=== PATIENT | female | born 1970 | race Caucasian/White ===

== ENCOUNTER 2017-01-17 00:52 | Emergency (ER) | payer OTHER ==
--- NOTE | 2017-01-17 03:43 | ED CLINICAL REPORT ---
Clinical Report - Physicians/Mid Levels [facility] [address] [place] [address] 01/17/2017 0:53 Patient: ALETA ARELLANO Time Seen: 00:59; initial patient contact. Arrived- By private vehicle. Historian- patient. HISTORY OF PRESENT ILLNESS Chief Complaint: CHEST PAIN. At its maximum, severity described as moderate. When seen in the E.D., severity described as moderate. Modifying factors. Not worsened by anything. Not relieved by anything. This started yesterday. Onset during rest. It is described as aching and "pain" and it is described as located in the RUQ of the abdomen and radiating to the upper back. The patient has had nausea. No vomiting, difficulty breathing or diaphoresis. Similar symptoms previously: Several times. Recent medical care: Not recently seen/assessed. REVIEW OF SYSTEMS No fever, chills, cough, pedal edema or calf pain. No diarrhea or vomiting. She has had abdominal pain and nausea. All systems otherwise negative, except as recorded above. PAST HISTORY Problems: Obesity. Hypertension. Depression. Anxiety Reaction. Surgeries: Appendectomy. . Tonsillectomy. SOCIAL HISTORY Never smoker. No alcohol use or drug use. ADDITIONAL NOTES The nursing notes have been reviewed. PHYSICAL EXAM Vital Signs: 01/17/2017 00:55 BP: 140/84. HR: 90. RR: 20. O2 saturation: 98%. Temp: 98.3 F. Pain level now: 04/18. Have been reviewed. Hypertensive. Heart rate normal. Respiratory rate normal. Temperature normal. Oxygen saturation normal. Appearance: Alert. Oriented X3. No acute distress. Eyes: Eyes normal inspection. ENT: Pharynx normal. CVS: Normal heart rate and rhythm. Heart sounds normal. Respiratory: No respiratory distress. Breath sounds normal. Chest nontender. Abdomen: Soft. Mild tenderness in the right upper quadrant. Positive Ervin's sign. No guarding. Bowel sounds normal. No organomegaly. No mass. Back: Normal external inspection. No CVA tenderness. Skin: Normal skin color. Extremities: No calf tenderness. No lower extremity edema. Neuro: Oriented X 3. LABS, X-RAYS, AND EKG EKG: EKG time: (101). No acute process. No acute ischemia. Normal EKG. Normal sinus rhythm. Rate: 90. Normal P waves. Normal SHELBI. Normal QRS complex. Normal axis. Normal ST and T waves, QT and QTc. Prior EKG unavailable. The study has been interpreted contemporaneously by me. The study has been independently viewed by me. The EKG appears to be a good tracing. Interpretation time: 101. Laboratory Tests: UA-Culture if indicated: (JOLENE: 01/17/2017 02:40) ( Mscvd 01/17/2017 03:01) Final results Test Result Flag Units (Reference) URINE COLOR YELLOW URINE APPEARANCE CLEAR URINE GLUCOSE NEGATIVE (NEGATIVE) URINE BILIRUBIN NEGATIVE (NEGATIVE) URINE KETONE NEGATIVE (NEGATIVE) URINE SPECIFIC GRAVITY 1.015 (1.010-1.030) URINE PH 6.0 (5.0-8.0) URINE PROTEIN NEGATIVE (NEGATIVE) URINE UROBILINOGEN 0.2 EU/dL (0.2-1.0) URINE NITRITE NEGATIVE (NEGATIVE) URINE BLOOD NEGATIVE (NEGATIVE) URINE LEUK ESTERASE NEGATIVE (NEGATIVE) URINE RBC RARE rbc/hpf (0-1) URINE WBC 0-1 wbc/hpf (0-1) URINE EPITHELIAL CELLS 0-1 EPI/hpf (0-5) URINE BACTERIA NONE SEEN (NONE SEEN) URINE COMMENT CULT NOT INDICATED URINE CULTURES ARE SET-UP BASED ON THE FOLLOWING CRITERIA:POSITIVE NITRITEPOSITIVE LEUKOCYTE ESTERASEGREATER THAN 10 WHITE BLOOD CELLSMODERATE (2+) OR GREATER BACTERIA CBC w Diff: (JOLENE: 01/17/2017 01:05) ( Mscvd 01/17/2017 02:08) Final results Test Result Flag Units (Reference) WHITE BLOOD COUNT 8.7 K/uL (4.5-11.5) RED BLOOD COUNT 3.90 L M/uL (4.00-5.20) HEMOGLOBIN 12.4 gm/dL (12.0-16.0) HEMATOCRIT 36.7 % (36.0-46.0) MEAN CELL VOLUME 94 fL (80-100) MEAN CORPUSCULAR HGB 32 pg (26-34) MEAN CORPUSCULAR HGB CONC 34 g/dL (31-37) RED CELL DISTRIBUTION WIDTH 12.9 % (11.6-14.8) PLATELET COUNT 200 K/uL (150-400) NEUTROPHIL % 59.2 % (50-75) LYMPH % 30.0 % (25-40) MONO % 8.3 % (3-14) EOSINOPHIL % 2.3 % (0-4) BASOPHIL % 0.2 % (0-2) Urine Drug Screen: (JOLENE: 01/17/2017 02:40) ( MsgRcvd 01/17/2017 03:12) Final results Test Result Flag Units (Reference) AMPHETAMINE/METHAMPHETAMINE NEGATIVE (NEGATIVE) BARBITURATE NEGATIVE (NEGATIVE) BENZODIAZEPINE NEGATIVE (NEGATIVE) CANNABINOID NEGATIVE (NEGATIVE) COCAINE NEGATIVE (NEGATIVE) ECSTASY NEGATIVE (NEGATIVE) METHADONE NEGATIVE (NEGATIVE) OPIATE NEGATIVE (NEGATIVE) The urine drug screen is a qualitative screening test fordrug overdose and abuse. All screen results should beconsidered as presumptive.Drugs screened for are as follows:BenzodiazepinesCocaineAmphetamines/MetamphetaminesTHC (Tetrahydrocannabinol)OpiatesBarbituratesEcstasyMethadonePositive results are unconfirmed. For confirmation, notifythe lab for the specimen to be sent to the reference lab.All confirmations must be performed by a differentmethodology.The ingestion of natural herbal and plant productscontaining Ephedra/Ephedra metabolites can produce in urineone or more substances capable of cross reacting withamphetamine/methamphetamine immunoassays. These testsprovide a preliminary result only. A more specificalternative chemical method must be used to obtain aconfirmed analytical result. CMP: (JOLENE: 01/17/2017 01:05) ( NcgRcvd 01/17/2017 02:26) Final results Test Result Flag Units (Reference) GLUCOSE 166 H mg/dL (70-110) BUN 17 mg/dL (7-18) CREATININE 0.8 mg/dL (0.6-1.3) Estimated GFR >60 mL/min Estimated GFR- >60 mL/min Note: Persistent reduction over 3 months in eGFR<60 mL/min/1.73 m2 defines CKD. Patients with eGFR values>=60 mL/min/1.73 m2 may also have CKD if evidence ofpersistent proteinuria. Additional information may be foundat www.kidney.org. SODIUM 138 mmol/L (136-145) POTASSIUM 3.8 mmol/L (3.5-5.1) CHLORIDE 104 mmol/L (98-107) CARBON DIOXIDE 25 mmol/L (21-32) CALCIUM 9.0 mg/dL (8.5-10.1) TOTAL PROTEIN 6.8 g/dL (6.4-8.2) ALBUMIN 3.4 g/dL (3.3-5.0) BILIRUBIN, TOTAL 0.5 mg/dL (0.0-1.0) ALKALINE PHOSPHATASE 78 U/L (46-116) AST (SGOT) 35 U/L (15-37) ALT (SGPT) 53 U/L (12-78) LIPASE 138 U/L (73-393) AMYLASE 40 U/L (25-115) . PROGRESS AND PROCEDURES Disposition: Discharged home in good and improved condition. Condition: good. CLINICAL IMPRESSION Acute right upper quadrant abdominal pain of undetermined cause. INSTRUCTIONS Prescription Medications: Hydrocodone/APAP 5mg / 325mg: take 1 orally every 6 hours as needed for pain. Dispense fifteen (15). No refill. Zofran (orally disintegrating tablets) 4 mg: take 1 orally every 6 hours as needed for nausea and vomiting. Dispense ten (10). No refill. Substitution is permissible. Follow-up: Screening today revealed the patient's blood pressure to be in the pre-hypertensive range. The patient should follow up with a primary care provider for blood pressure management. Follow-up with: Mario Gill MD, General Surgeon, , [facility], [address] [place] [address] Follow up in about one day. Call for an appointment. (Electronically signed by Meir Corona Dr. 01/17/2017 3:56)
--- NOTE | 2017-01-17 03:43 | ED ORDER SUMMARY ---
..... Patient: ALETA ARELLANO OrderSheet VisitID: [id number] [place] [address] 46y, F Registration Date/Time: 01/17/2017 ORDER SHEET Weight: 136.0 kg (stated) Allergies: No Known Drug Allergy GENERAL ORDERS: CBC w Diff Urgent (01:40 01/17/2017 Esha De Jesus) (1:44 TLewis R.N.) CMP Urgent (:40 01/17/2017 Esha De Jesus) (Ack 1:52 AMcQuoid ER Tech1) (2:29 HSoule) Amylase Urgent (:40 01/17/2017 Esha De Jesus) (Ack 1:52 AMcQuoid ER Tech1) (2:29 HSoule) Lipase Urgent (:01/17/2017 Esha De Jesus) (Ack 1:52 AMcQuoid ER Tech1) (2:29 HSoule) UA-Culture if indicated Urgent (01:59 01/17/2017 Esha De Jesus) (Ack 2:04 SRedmond) (3:06 HSoule) Urine Drug Screen Urgent (:59 01/17/2017 Esha De Jesus) (Ack 2:04 SRedmond) (3:12 HSoule) MEDICATION ORDERS: IV FLUIDS: IV NS : initial bolus none -, then 1000 mL/hr for X1 (NOW) (01:39 01/17/2017 Esha De Jesus) (2:11 HSoule) Toradol IV 30 mg (NOW) (01:40 01/17/2017 Esha De Jesus) (Cancelled: Physician Order1:57 Esha De Jesus) Demerol IV 50 mg (HIGH ALERT MEDICATION, NOW) (01:58 01/17/2017 Esha De Jesus) (2:12 HSoule) Demerol IV 50 mg (HIGH ALERT MEDICATION, NOW) (03:36 01/17/2017 Esha De Jesus) (Ack 3:37 HSoule) (3:43 HSoule) ORDER SHEET NOTES: [Electronically signed by Meir Corona Dr. (03:56 01/17/2017)] [Electronically signed by Nerissa Camp R.N. (:43 01/20/2017)] [Electronically locked/signed by Nerissa Camp R.N. (43 01/20/2017)]
--- NOTE | 2017-01-17 03:43 | ED ORDER SUMMARY ---
..... Patient: ALETA ARELLANO OrderSheet [facility] VisitID: [id number] [place] [address] 46y, F Registration Date/Time: 01/17/2017 ORDER SHEET Weight: 136.0 kg (stated) Allergies: No Known Drug Allergy GENERAL ORDERS: CBC w Diff Urgent (01:40 01/17/2017 Esha De Jesus) (1:44 TLewis R.N.) CMP Urgent (:40 01/17/2017 Esha De Jesus) (Ack 1:52 AMcQuoid ER Tech1) (2:29 HSoule) Amylase Urgent (:40 01/17/2017 Esha De Jesus) (Ack 1:52 AMcQuoid ER Tech1) (2:29 HSoule) Lipase Urgent (:01/17/2017 Esha De Jesus) (Ack 1:52 AMcQuoid ER Tech1) (2:29 HSoule) UA-Culture if indicated Urgent (01:59 01/17/2017 Esha De Jesus) (Ack 2:04 SRedmond) (3:06 HSoule) Urine Drug Screen Urgent (:59 01/17/2017 Esha De Jesus) (Ack 2:04 SRedmond) (3:12 HSoule) MEDICATION ORDERS: IV FLUIDS: IV NS : initial bolus none -, then 1000 mL/hr for X1 (NOW) (01:39 01/17/2017 Esha De Jesus) (2:11 HSoule) Toradol IV 30 mg (NOW) (01:40 01/17/2017 Esha De Jesus) (Cancelled: Physician Order1:57 Esha De Jesus) Demerol IV 50 mg (HIGH ALERT MEDICATION, NOW) (01:58 01/17/2017 Esha De Jesus) (2:12 HSoule) Demerol IV 50 mg (HIGH ALERT MEDICATION, NOW) (03:36 01/17/2017 Esha De Jesus) (Ack 3:37 HSoule) (3:43 HSoule) ORDER SHEET NOTES: [Electronically signed by Meir Corona Dr. (03:56 01/17/2017)] [Electronically signed by Nerissa Camp R.N. (:43 01/20/2017)] [Electronically locked/signed by Nerissa Camp R.N. (43 01/20/2017)]
--- NOTE | 2017-01-17 03:43 | ED NURSING NOTES ---
Clinical Report - Nurses [facility] [address] [place] [address] 01/17/2017 0:53 [facility]: [id number] Triage time 00:55 Jan 17 2017. Acuity: LEVEL 3. Chief Complaint: CHEST PAIN. SEPSIS SCREEN: Sepsis Screen: negative. Negative (no infection suspected/documented). KENISHA COMA SCORE: Kenisha Coma Scale: 15- eyes open spontaneously (4); best verbal response- oriented x 4 (5); best motor response- obeys commands (6). --01:02 Trupti Jansen 00:55 01/17/17. BP: 140/84. HR: 90. RR: 20. O2 saturation: 98% on room air. Temp: 98.3 F (oral). Pain level now: 04/18. --01:02 Trupti Jansen. Weight: 136 kg stated. Height/Length: 68 inches Per Patient. BMI: 45.6. --01:00 Trupti Jansen. Medications Omeprazole Oral. --00:59 Trupti Jansen. Allergies No Known Drug Allergy. --00:59 Trupti Jansen. History Arrived by private vehicle. Historian: patient. Accompanied by friend. Primary physician (none at this time- [facility]). ( Patient reports pain in her right chest area under her ribs. She states it moves into her back. She reports a history of GERD but states the pain is increasing. She reports the pain as sharp and aching. She states this started about ten tonight. She reports she also feels very tired.). She has had difficulty breathing. Treatment [employer]: None. PAST MEDICAL HX: Diabetes mellitus. Hypertension. Immunizations: up-to-date. Last normal menstrual period- 10 days ago. SOCIAL HX: Never smoker. Occasional alcohol use. No drug use. No infectious disease exposure. ABUSE ASSESSMENT: No report of abuse. SELF HARM ASSESSMENT: A self harm assessment was performed. The patient answered "no" to the question "Have you recently felt down, depressed, or hopeless?", "Have you noticed less interest or pleasure in doing things?", "Do you have thoughts of harming or killing yourself?", "Are you here because you tried to hurt yourself?", "Have you ever tried to hurt yourself before today?", "Have you recently had thoughts about harming or killing others?" and "Do you have any dangerous items in your possession?". FALL RISK ASSESSMENT: Fall risk assessment completed. No fall risk identified. NUTRITIONAL RISK ASSESSMENT: The nutritional risk assessment revealed no deficiencies. FUNCTIONAL ASSESSMENT: Functional assessment: no impairments noted. LEARNING NEEDS ASSESSMENT: The learning needs assessment revealed no barriers. SKIN INTEGRITY ASSESSMENT: Skin integrity risk assessment completed. No skin integrity risk identified. --01:02 Trupti Jansen. PROBLEMS: Back Pain. Obesity. Depression. Anxiety Reaction. --00:59 Trupti Jansen The following entry was modified by Trupti Jansen, 01:02 <<STRICKEN ENTRY-- Hypertension. --04:06 Trupti Jansen --END STRIKE>>. ADDITIONAL SURGERIES: Appendectomy. . Tonsillectomy. --:59 Trupti Jansen. Interventions ID band on patient. To treatment room. --01: Trupti Jansen. PHYSICAL ASSESSMENT Ambulatory to room. Patient gowned. GENERAL / NEURO / PSYCH: Alert. Oriented X 4. Appears in no acute distress. HEENT: Mucous membranes are pink. RESPIRATORY: Respirations not labored. CVS: Normal sinus rhythm noted. Heart sounds within normal limits. GI / : Abdomen soft. Abdominal tenderness in the right upper quadrant. SKIN: Skin is warm and dry. --:04 Trupti Jansen. NURSING PROGRESS NOTES The initial plan of care for this patient has been created This plan of care was discussed with the patient. monitor and storage bin tender, pulse oximeter and NIBP monitor placed on patient. Patient gowned. Reassurance given to the patient. Two patient identifiers checked. Call light placed in reach. Side rails up x 1. Bed placed in lowest position. Brakes of bed on. Patient ready for evaluation- chart flagged and ED physician notified. --01:04 Trupti Jansen EKG time: (Jan 17 2017). EKG was ordered, performed by a tech and shown to the ED physician. --01:28 InderjitKiran jimeneznah 01:20 01/17/2017 Site #1 started via IV in the left forearm with an 20g angiocath, with aseptic technique and good blood return; one attempt. Blood drawn: rainbow set. Labeled in the presence of the patient and sent to the lab. Saline lock flushed with 10 mL saline. --02:11 InderjitKiran jimeneznah 01:56 01/17/2017 Started bag #1 1000 mL IV Fluids IV NS (Saline); at 1000 mL/hr over 1 hour(s) via site #1 via IV pump. Allergies verified and confirmed 5 rights. IV patency established. IV site checked: no pain, redness, or swelling. IV flushed thoroughly pre- and post-medication administration. --02:11 Inderjit Trupti 02:07 01/17/2017 Demerol (Meperidine HCl) IVP 50 mg given over 1 minute(s) via site #1. Allergies verified and confirmed 5 rights. IV patency established. IV site checked: no pain, redness, or swelling. IV flushed thoroughly pre- and post-medication administration. IVP given by RN. --02:12 Inderjit Trupti 02:15 01/17/17. Patient ID band checked for patient name and birthdate: patient confirmed. Blood samples drawn from the right antecubital space with 23g butterfly by nurse ; labeled in presence of the patient and sent to lab: rainbow set. Additional blood sent to lab. --02:21 Inderjit Trupti Patient ID band checked for patient name and birthdate: patient confirmed. Instructions provided to collect clean catch urine and patient verbalized understanding. Clean catch urine collected with return of yellow-colored clear urine; sample sent to lab for urinalysis and drug screen. Specimen labeled in the presence of the patient. --02:43 Inderjit Trupti 02:51 01/17/17. BP: 120/62. HR: 91. RR: 20. O2 saturation: 96% on room air. Pain level now: 05/19. --02:52 Trupti Jansen 03:06 01/17/2017 IV Fluids IV NS Discontinued: bag #1 completed. Total amount infused: 1000 mL. IV patency established. IV site checked: no pain, redness, or swelling. IV flushed thoroughly. --03:07 Trupti Jansen 03:43 01/17/2017 Demerol (Meperidine HCl) IVP 50 mg given over 1 minute(s) via site #1. Allergies verified and confirmed 5 rights. IV patency established. IV site checked: no pain, redness, or swelling. IV flushed thoroughly pre- and post-medication administration. IVP given by RN. --03:43 Trupti Jansen. DISPOSITION / DISCHARGE Condition at departure: improved and stable. The goals identified in the patient's plan of care were met. Learning barriers present. Discharge instructions provided and reviewed. Reviewed warnings (Do not drive while on sedative medications). Reviewed medication(s) side effects, precautions, dosing and course information. Prescription(s) given to the patient. Patient verbalized understanding. Written instructions provided in Setsw[place]. ( Follow up with Surgeon tomorrow as directed in discharge instructions. Contact information provided. Hydrate and rest. Return if symptoms worsen. Follow up with your PCP regarding some of the health issues that have been concerning you. Patient verbalized understanding and had no questions at this time.). The patient was discharged by the physician. She was discharged home and accompanied by boot trimmer. She left the Emergency Department ambulatory and via private vehicle. Copy Editor driving. FALL RISK ASSESSMENT: Fall risk assessment completed. No fall risk identified. --03:55 Trupti Jansen 03:52 01/17/17. BP: 130/81. HR: 88. RR: 20. O2 saturation: 99% on room air. Temp: 98 F (oral). Pain level now: 02/16. --03:55 Trupti Jansen 03:50 01/17/2017 Site #1 removed upon discharge. Catheter intact. Bandaid applied. --03:55 Trupti Jansen. Locked/Released at 01/20/2017 9:43 by Nerissa Camp R.N.
--- NOTE | 2017-01-17 03:43 | ED CLINICAL REPORT ---
Clinical Report - Physicians/Mid Levels [facility] [address] [place] [address] 01/17/2017 0:53 Patient: ALETA ARELLANO Time Seen: 00:59; initial patient contact. Arrived- By private vehicle. Historian- patient. HISTORY OF PRESENT ILLNESS Chief Complaint: CHEST PAIN. At its maximum, severity described as moderate. When seen in the E.D., severity described as moderate. Modifying factors. Not worsened by anything. Not relieved by anything. This started yesterday. Onset during rest. It is described as aching and "pain" and it is described as located in the RUQ of the abdomen and radiating to the upper back. The patient has had nausea. No vomiting, difficulty breathing or diaphoresis. Similar symptoms previously: Several times. Recent medical care: Not recently seen/assessed. REVIEW OF SYSTEMS No fever, chills, cough, pedal edema or calf pain. No diarrhea or vomiting. She has had abdominal pain and nausea. All systems otherwise negative, except as recorded above. PAST HISTORY Problems: Obesity. Hypertension. Depression. Anxiety Reaction. Surgeries: Appendectomy. . Tonsillectomy. SOCIAL HISTORY Never smoker. No alcohol use or drug use. ADDITIONAL NOTES The nursing notes have been reviewed. PHYSICAL EXAM Vital Signs: 01/17/2017 00:55 BP: 140/84. HR: 90. RR: 20. O2 saturation: 98%. Temp: 98.3 F. Pain level now: 04/18. Have been reviewed. Hypertensive. Heart rate normal. Respiratory rate normal. Temperature normal. Oxygen saturation normal. Appearance: Alert. Oriented X3. No acute distress. Eyes: Eyes normal inspection. ENT: Pharynx normal. CVS: Normal heart rate and rhythm. Heart sounds normal. Respiratory: No respiratory distress. Breath sounds normal. Chest nontender. Abdomen: Soft. Mild tenderness in the right upper quadrant. Positive Ervin's sign. No guarding. Bowel sounds normal. No organomegaly. No mass. Back: Normal external inspection. No CVA tenderness. Skin: Normal skin color. Extremities: No calf tenderness. No lower extremity edema. Neuro: Oriented X 3. LABS, X-RAYS, AND EKG EKG: EKG time: (101). No acute process. No acute ischemia. Normal EKG. Normal sinus rhythm. Rate: 90. Normal P waves. Normal SHELBI. Normal QRS complex. Normal axis. Normal ST and T waves, QT and QTc. Prior EKG unavailable. The study has been interpreted contemporaneously by me. The study has been independently viewed by me. The EKG appears to be a good tracing. Interpretation time: 101. Laboratory Tests: UA-Culture if indicated: (JOLENE: 01/17/2017 02:40) ( Mscvd 01/17/2017 03:01) Final results Test Result Flag Units (Reference) URINE COLOR YELLOW URINE APPEARANCE CLEAR URINE GLUCOSE NEGATIVE (NEGATIVE) URINE BILIRUBIN NEGATIVE (NEGATIVE) URINE KETONE NEGATIVE (NEGATIVE) URINE SPECIFIC GRAVITY 1.015 (1.010-1.030) URINE PH 6.0 (5.0-8.0) URINE PROTEIN NEGATIVE (NEGATIVE) URINE UROBILINOGEN 0.2 EU/dL (0.2-1.0) URINE NITRITE NEGATIVE (NEGATIVE) URINE BLOOD NEGATIVE (NEGATIVE) URINE LEUK ESTERASE NEGATIVE (NEGATIVE) URINE RBC RARE rbc/hpf (0-1) URINE WBC 0-1 wbc/hpf (0-1) URINE EPITHELIAL CELLS 0-1 EPI/hpf (0-5) URINE BACTERIA NONE SEEN (NONE SEEN) URINE COMMENT CULT NOT INDICATED URINE CULTURES ARE SET-UP BASED ON THE FOLLOWING CRITERIA:POSITIVE NITRITEPOSITIVE LEUKOCYTE ESTERASEGREATER THAN 10 WHITE BLOOD CELLSMODERATE (2+) OR GREATER BACTERIA CBC w Diff: (JOLENE: 01/17/2017 01:05) ( Mscvd 01/17/2017 02:08) Final results Test Result Flag Units (Reference) WHITE BLOOD COUNT 8.7 K/uL (4.5-11.5) RED BLOOD COUNT 3.90 L M/uL (4.00-5.20) HEMOGLOBIN 12.4 gm/dL (12.0-16.0) HEMATOCRIT 36.7 % (36.0-46.0) MEAN CELL VOLUME 94 fL (80-100) MEAN CORPUSCULAR HGB 32 pg (26-34) MEAN CORPUSCULAR HGB CONC 34 g/dL (31-37) RED CELL DISTRIBUTION WIDTH 12.9 % (11.6-14.8) PLATELET COUNT 200 K/uL (150-400) NEUTROPHIL % 59.2 % (50-75) LYMPH % 30.0 % (25-40) MONO % 8.3 % (3-14) EOSINOPHIL % 2.3 % (0-4) BASOPHIL % 0.2 % (0-2) Urine Drug Screen: (JOLENE: 01/17/2017 02:40) ( MsgRcvd 01/17/2017 03:12) Final results Test Result Flag Units (Reference) AMPHETAMINE/METHAMPHETAMINE NEGATIVE (NEGATIVE) BARBITURATE NEGATIVE (NEGATIVE) BENZODIAZEPINE NEGATIVE (NEGATIVE) CANNABINOID NEGATIVE (NEGATIVE) COCAINE NEGATIVE (NEGATIVE) ECSTASY NEGATIVE (NEGATIVE) METHADONE NEGATIVE (NEGATIVE) OPIATE NEGATIVE (NEGATIVE) The urine drug screen is a qualitative screening test fordrug overdose and abuse. All screen results should beconsidered as presumptive.Drugs screened for are as follows:BenzodiazepinesCocaineAmphetamines/MetamphetaminesTHC (Tetrahydrocannabinol)OpiatesBarbituratesEcstasyMethadonePositive results are unconfirmed. For confirmation, notifythe lab for the specimen to be sent to the reference lab.All confirmations must be performed by a differentmethodology.The ingestion of natural herbal and plant productscontaining Ephedra/Ephedra metabolites can produce in urineone or more substances capable of cross reacting withamphetamine/methamphetamine immunoassays. These testsprovide a preliminary result only. A more specificalternative chemical method must be used to obtain aconfirmed analytical result. CMP: (JOLENE: 01/17/2017 01:05) ( GagRcvd 01/17/2017 02:26) Final results Test Result Flag Units (Reference) GLUCOSE 166 H mg/dL (70-110) BUN 17 mg/dL (7-18) CREATININE 0.8 mg/dL (0.6-1.3) Estimated GFR >60 mL/min Estimated GFR- >60 mL/min Note: Persistent reduction over 3 months in eGFR<60 mL/min/1.73 m2 defines CKD. Patients with eGFR values>=60 mL/min/1.73 m2 may also have CKD if evidence ofpersistent proteinuria. Additional information may be foundat www.[email or web address].org. SODIUM 138 mmol/L (136-145) POTASSIUM 3.8 mmol/L (3.5-5.1) CHLORIDE 104 mmol/L (98-107) CARBON DIOXIDE 25 mmol/L (21-32) CALCIUM 9.0 mg/dL (8.5-10.1) TOTAL PROTEIN 6.8 g/dL (6.4-8.2) ALBUMIN 3.4 g/dL (3.3-5.0) BILIRUBIN, TOTAL 0.5 mg/dL (0.0-1.0) ALKALINE PHOSPHATASE 78 U/L (46-116) AST (SGOT) 35 U/L (15-37) ALT (SGPT) 53 U/L (12-78) LIPASE 138 U/L (73-393) AMYLASE 40 U/L (25-115) . PROGRESS AND PROCEDURES Disposition: Discharged home in good and improved condition. Condition: good. CLINICAL IMPRESSION Acute right upper quadrant abdominal pain of undetermined cause. INSTRUCTIONS Prescription Medications: Hydrocodone/APAP 5mg / 325mg: take 1 orally every 6 hours as needed for pain. Dispense fifteen (15). No refill. Zofran (orally disintegrating tablets) 4 mg: take 1 orally every 6 hours as needed for nausea and vomiting. Dispense ten (10). No refill. Substitution is permissible. Follow-up: Screening today revealed the patient's blood pressure to be in the pre-hypertensive range. The patient should follow up with a primary care provider for blood pressure management. Follow-up with: Mario Gill MD, General Surgeon, , [facility], [address] [place] [address] Follow up in about one day. Call for an appointment. (Electronically signed by Meir Corona Dr. 01/17/2017 3:56)
--- NOTE | 2017-01-20 09:43 | ED DISCHARGE INSTRUCTIONS ---
Patient: ALETA ARELLANO General Instructions [facility] VisitID: [id number] [address] [place] [id number] 46y, F Registration Date/Time: 01/17/2017 Acute right upper quadrant abdominal pain of undetermined cause. INSTRUCTIONS Prescription Medications: Hydrocodone/APAP 5mg / 325mg: take 1 orally every 6 hours as needed for pain. Dispense fifteen (15). No refill. Zofran (orally disintegrating tablets) 4 mg: take 1 orally every 6 hours as needed for nausea and vomiting. Dispense ten (10). No refill. Substitution is permissible. Follow-up: Screening today revealed the patient's blood pressure to be in the pre-hypertensive range. The patient should follow up with a primary care provider for blood pressure management. Follow-up with: Mario Gill MD, General Surgeon, , [facility], [address] [place] [address] Follow up in about one day. Call for an appointment. ADDITIONAL INFORMATION Abdominal Pain, Unknown Cause (Female) The exact cause of your abdominal (stomach) pain is not certain. This does not mean that this is something to worry about, or the right tests were not done. Everyone likes to know the exact cause of the problem, but sometimes with abdominal pain, there is no clear-cut cause, and this could be a good thing. The good news is that your symptoms can be treated, and you will feel better. Your condition does not seem serious now; however, sometimes the signs of a serious problem may take more time to appear. For this reason,it is important for you to watch for any new symptoms, problems,or worsening of your condition. Over the next few days, the abdominal pain may come and go, or be continuous. Other common symptoms can include nausea and vomiting. Sometimes it can be difficult to tell if you feel nauseous, you may just feel bad and not associate that feeling with nausea. Constipation, diarrhea, and a fever may go along with the pain. The pain may continue even if treated correctly over the following days. Depending on how things go, sometimes the cause can become clear and may require further or different treatment. Additional evaluations, medications, or tests may be needed. Home care Your health care provider may prescribe medications for pain, symptoms, or an infection. Follow the health care provider's instructions for taking these medications. General care Rest until your next exam. No strenuous activities. Try to find positions that ease discomfort. A small pillow placed on the abdomen may help relieve pain. Something warm on your abdomen (such as a heating pad) may help, but be careful not to burn yourself. Diet Do not force yourself to eat, especially if having cramps, vomiting, or diarrhea. Water is important so you do not get dehydrated. Soup may also be good. Sports drinks may also help, especially if they are not too acidic. Make sure you don't drink sugary drinks as this can make things worse. Take liquids in small amounts. Do not guzzle them. Caffeine sometimes makes the pain and cramping worse. Avoid dairy products if you have vomiting or diarrhea. Don't eat large amounts at a time. Wait a few minutes between bites. Eat a diet low in fiber (called a low-residue diet). Foods allowed include refined breads, white rice, fruit and vegetable juices without pulp, tender meats. These foods will pass more easily through the intestine. Avoid whole-grain foods, whole fruits and vegetables, meats, seeds and nuts, fried or fatty foods, dairy, alcohol and spicy foods until your symptoms go away. Follow-up care Follow up with your health care provider as instructed, or if your pain does not begin to improve in the next 24 hours. When to seek medical care Seek prompt medical care if any of the following occur: Pain gets worse or moves to the right lower abdomen New or worsening vomiting or diarrhea Swelling of the abdomen Unable to pass stool for more than three days Fever of 100.4F (38C) or higher, or as directed by your healthcare provider. Blood in vomit or bowel movements (dark red or black color) Jaundice (yellow color of eyes and skin) Weakness, dizziness Chest, arm, back, neck or jaw pain Unexpected vaginal bleeding or missed period Call 911 Call emergency services if any of the following occur: Trouble breathing Confusion Fainting or loss of consciousness Rapid heart rate Seizure Hydrocodone Bitartrate, Acetaminophen Oral tablet What is this medicine? ACETAMINOPHEN; HYDROCODONE (a set a VANESSA hortencia fen; min droe KOE done) is a pain reliever. It is used to treat mild to moderate pain. How should I use this medicine? Take this medicine by mouth. Swallow it with a full glass of water. Follow the directions on the prescription label. If the medicine upsets your stomach, take the medicine with food or milk. Do not take more than you are told to take. Talk to your evaluator transfer students regarding the use of this medicine in children. This medicine is not approved for use in children. What side effects may I notice from receiving this medicine? Side effects that you should report to your doctor or health complex care nurse as soon as possible: allergic reactions like skin rash, itching or hives, swelling of the face, lips, or tongue breathing problems confusion feeling faint or lightheaded, falls stomach pain yellowing of the eyes or skin Side effects that usually do not require medical attention (report to your doctor or health complex care nurse if they continue or are bothersome): nausea, vomiting stomach upset What may interact with this medicine? alcohol antihistamines isoniazid medicines for depression, anxiety, or psychotic disturbances medicines for sleep muscle relaxants naltrexone narcotic medicines (opiates) for pain phenobarbital ritonavir tramadol What if I miss a dose? If you miss a dose, take it as soon as you can. If it is almost time for your next dose, take only that dose. Do not take double or extra doses. Where should I keep my medicine? Keep out of the reach of children. This medicine can be abused. Keep your medicine in a safe place to protect it from theft. Do not share this medicine with anyone. Selling or giving away this medicine is dangerous and against the law. Store at room temperature between 15 and 30 degrees C (59 and 86 degrees F). Protect from light. Keep container tightly closed. Throw away any unused medicine after the expiration date. Discard unused medicine and used packaging carefully. Pets and children can be harmed if they find used or lost packages. What should I tell my health care provider before I take this medicine? They need to know if you have any of these conditions: brain tumor Crohn's disease, inflammatory bowel disease, or ulcerative colitis drink more than 3 alcohol-containing drinks per day drug abuse or addiction head injury heart or circulation problems kidney disease or problems going to the bathroom liver disease lung disease, asthma, or breathing problems an unusual or allergic reaction to acetaminophen, hydrocodone, other opioid analgesics, other medicines, foods, dyes, or preservatives or trying to get breast-feeding What should I watch for while using this medicine? Tell your doctor or health complex care nurse if your pain does not go away, if it gets worse, or if you have new or a different type of pain. You may develop tolerance to the medicine. Tolerance means that you will need a higher dose of the medicine for pain relief. Tolerance is normal and is expected if you take the medicine for a long time. Do not suddenly stop taking your medicine because you may develop a severe reaction. Your body becomes used to the medicine. This does NOT mean you are addicted. Addiction is a behavior related to getting and using a drug for a non-medical reason. If you have pain, you have a medical reason to take pain medicine. Your doctor will tell you how much medicine to take. If your doctor wants you to stop the medicine, the dose will be slowly lowered over time to avoid any side effects. You may get drowsy or dizzy when you first start taking the medicine or change doses. Do not drive, use machinery, or do anything that may be dangerous until you know how the medicine affects you. Stand or sit up slowly. There are different types of narcotic medicines (opiates) for pain. If you take more than one type at the same time, you may have more side effects. Give your health care provider a list of all medicines you use. Your doctor will tell you how much medicine to take. Do not take more medicine than directed. Call emergency for help if you have problems breathing. The medicine will cause constipation. Try to have a bowel movement at least every 2 to 3 days. If you do not have a bowel movement for 3 days, call your doctor or health complex care nurse. Too much acetaminophen can be very dangerous. Do not take Tylenol (acetaminophen) or medicines that contain acetaminophen with this medicine. Many non-prescription medicines contain acetaminophen. Always read the labels carefully. Ondansetron Oral disintegrating tablet What is this medicine? ONDANSETRON (on MALORIE se yuri) is used to treat nausea and vomiting caused by chemotherapy. It is also used to prevent or treat nausea and vomiting after surgery. How should I use this medicine? These tablets are made to dissolve in the mouth. Do not try to push the tablet through the foil backing. With dry hands, peel away the foil backing and gently remove the tablet. Place the tablet in the mouth and allow it to dissolve, then swallow. While you may take these tablets with water, it is not necessary to do so. Talk to your evaluator transfer students regarding the use of this medicine in children. Special care may be needed. What side effects may I notice from receiving this medicine? Side effects that you should report to your doctor or health complex care nurse as soon as possible: allergic reactions like skin rash, itching or hives, swelling of the face, lips, or tongue breathing problems dizziness fast or irregular heartbeat feeling faint or lightheaded, falls fever and chills swelling of the hands and feet tightness in the chest Side effects that usually do not require medical attention (report to your doctor or health complex care nurse if they continue or are bothersome): constipation or diarrhea headache What may interact with this medicine? Do not take this medicine with any of the following medications: -apomorphine -cisapride -dofetilide -dronedarone -pimozide -thioridazine -ziprasidone This medicine may also interact with the following medications: -carbamazepine -phenytoin -rifampicin -tramadol -other medicines that prolong the QT interval (cause an abnormal heart rhythm) What if I miss a dose? If you miss a dose, take it as soon as you can. If it is almost time for your next dose, take only that dose. Do not take double or extra doses. Where should I keep my medicine? Keep out of the reach of children. Store between 2 and 30 degrees C (36 and 86 degrees F). Throw away any unused medicine after the expiration date. What should I tell my health care provider before I take this medicine? They need to know if you have any of these conditions: heart disease history of irregular heartbeat liver disease low levels of magnesium or potassium in the blood an unusual or allergic reaction to ondansetron, granisetron, other medicines, foods, dyes, or preservatives or trying to get breast-feeding What should I watch for while using this medicine? Check with your doctor or health complex care nurse as soon as you can if you have any sign of an allergic reaction. You have been given the following additional information: Abdominal Pain, Unknown Cause, (Female) Hydrocodone Bitartrate, Acetaminophen Oral tablet Ondansetron Oral disintegrating tablet (Electronically signed by Meir Corona Dr. 01/17/2017 3:56)
--- NOTE | 2017-01-20 09:43 | ED MAR SUMMARY ---
..... Medication Administration Record [facility] [address] [place] [address] Patient: ALETA ARELLANO Visit ID: [id number] 46y, F Weight: 136.0 kg Height/Length: 68 in BMI: 45.6 ALLERGIES: No Known Drug Allergy Start 01:56 01/17/2017 Trupti Jansen,, Stop 03:06 01/17/2017 Trupti Jansen, Medication Administered: IV NS (SALINE), Dose: IV Fluids over 1 hour(s), Rate: 1000 mL/hr, Dispensed: 1000 mL bag, Site: #1 left forearm. Medication Ordered: IV NS : initial bolus none -, then 1000 mL/hr for X1 (NOW). Given 02:07 01/17/2017 Trupti Jansen, Medication Administered: DEMEROL [IVP] (MEPERIDINE HCL), Dose: 50 mg IVP over 1 minute(s), Site: #1 left forearm. Medication Ordered: Demerol IV 50 mg (HIGH ALERT MEDICATION, NOW). Given 03:43 01/17/2017 Trupti Jansen, Medication Administered: DEMEROL [IVP] (MEPERIDINE HCL), Dose: 50 mg IVP over 1 minute(s), Site: #1 left forearm. Medication Ordered: Demerol IV 50 mg (HIGH ALERT MEDICATION, NOW).
--- NOTE | 2017-01-20 09:43 | ED MED RECONCILIATION SUMMARY ---
Patient: ALETA ARELLANO Medication Reconciliation Report [facility] VisitID: [id number] [address] [place] [address] 46y, F Registration Date/Time: 01/17/2017 Weight: 136.0 kg Height/Length: 68 in. BMI: 45.6 ALLERGIES: No Known Drug Allergy The patient's Home Medications are listed below: THE FOLLOWING MEDICATIONS NEED TO BE RECONCILED: Omeprazole Oral The source(s) of the original Home Medication information: Not obtained. The following Medications were given to the patient in the Emergency Department: IV NS IV Fluids bolus 0, then 1000 mL/hr, administered: 01/17/2017 1:56:00 AM Demerol [IVP] IVP 50 mg, administered: 01/17/2017 2:07:00 AM Demerol [IVP] IVP 50 mg, administered: 01/17/2017 3:43:00 AM The following Medications were prescribed to the patient: Hydrocodone/APAP 5mg / 325mg: take 1 orally every 6 hours as needed for pain. Dispense fifteen (15). No refill. -- Meir Corona Dr. Zofran (orally disintegrating tablets) 4 mg: take 1 orally every 6 hours as needed for nausea and vomiting. Dispense ten (10). No refill. Substitution is permissible. -- Meir Corona Dr.
--- NOTE | 2017-01-20 09:43 | ED MED RECONCILIATION SUMMARY ---
Patient: ALETA ARELLANO Medication Reconciliation Report [facility] VisitID: [id number] [address] [place] [address] 46y, F Registration Date/Time: 01/17/2017 Weight: 136.0 kg Height/Length: 68 in. BMI: 45.6 ALLERGIES: No Known Drug Allergy The patient's Home Medications are listed below: THE FOLLOWING MEDICATIONS NEED TO BE RECONCILED: Omeprazole Oral The source(s) of the original Home Medication information: Not obtained. The following Medications were given to the patient in the Emergency Department: IV NS IV Fluids bolus 0, then 1000 mL/hr, administered: 01/17/2017 1:56:00 AM Demerol [IVP] IVP 50 mg, administered: 01/17/2017 2:07:00 AM Demerol [IVP] IVP 50 mg, administered: 01/17/2017 3:43:00 AM The following Medications were prescribed to the patient: Hydrocodone/APAP 5mg / 325mg: take 1 orally every 6 hours as needed for pain. Dispense fifteen (15). No refill. -- Meir Corona Dr. Zofran (orally disintegrating tablets) 4 mg: take 1 orally every 6 hours as needed for nausea and vomiting. Dispense ten (10). No refill. Substitution is permissible. -- Meir Corona Dr.
--- NOTE | 2017-01-20 09:43 | ED DISCHARGE INSTRUCTIONS ---
Patient: ALETA ARELLANO General Instructions [facility] VisitID: [id number] [address] [id number] 46y, F Registration Date/Time: 01/17/2017 Acute right upper quadrant abdominal pain of undetermined cause. INSTRUCTIONS Prescription Medications: Hydrocodone/APAP 5mg / 325mg: take 1 orally every 6 hours as needed for pain. Dispense fifteen (15). No refill. Zofran (orally disintegrating tablets) 4 mg: take 1 orally every 6 hours as needed for nausea and vomiting. Dispense ten (10). No refill. Substitution is permissible. Follow-up: Screening today revealed the patient's blood pressure to be in the pre-hypertensive range. The patient should follow up with a primary care provider for blood pressure management. Follow-up with: Mario Gill MD, General Surgeon, , [facility], [address] [place] [address] Follow up in about one day. Call for an appointment. ADDITIONAL INFORMATION Abdominal Pain, Unknown Cause (Female) The exact cause of your abdominal (stomach) pain is not certain. This does not mean that this is something to worry about, or the right tests were not done. Everyone likes to know the exact cause of the problem, but sometimes with abdominal pain, there is no clear-cut cause, and this could be a good thing. The good news is that your symptoms can be treated, and you will feel better. Your condition does not seem serious now; however, sometimes the signs of a serious problem may take more time to appear. For this reason,it is important for you to watch for any new symptoms, problems,or worsening of your condition. Over the next few days, the abdominal pain may come and go, or be continuous. Other common symptoms can include nausea and vomiting. Sometimes it can be difficult to tell if you feel nauseous, you may just feel bad and not associate that feeling with nausea. Constipation, diarrhea, and a fever may go along with the pain. The pain may continue even if treated correctly over the following days. Depending on how things go, sometimes the cause can become clear and may require further or different treatment. Additional evaluations, medications, or tests may be needed. Home care Your health care provider may prescribe medications for pain, symptoms, or an infection. Follow the health care provider's instructions for taking these medications. General care Rest until your next exam. No strenuous activities. Try to find positions that ease discomfort. A small pillow placed on the abdomen may help relieve pain. Something warm on your abdomen (such as a heating pad) may help, but be careful not to burn yourself. Diet Do not force yourself to eat, especially if having cramps, vomiting, or diarrhea. Water is important so you do not get dehydrated. Soup may also be good. Sports drinks may also help, especially if they are not too acidic. Make sure you don't drink sugary drinks as this can make things worse. Take liquids in small amounts. Do not guzzle them. Caffeine sometimes makes the pain and cramping worse. Avoid dairy products if you have vomiting or diarrhea. Don't eat large amounts at a time. Wait a few minutes between bites. Eat a diet low in fiber (called a low-residue diet). Foods allowed include refined breads, white rice, fruit and vegetable juices without pulp, tender meats. These foods will pass more easily through the intestine. Avoid whole-grain foods, whole fruits and vegetables, meats, seeds and nuts, fried or fatty foods, dairy, alcohol and spicy foods until your symptoms go away. Follow-up care Follow up with your health care provider as instructed, or if your pain does not begin to improve in the next 24 hours. When to seek medical care Seek prompt medical care if any of the following occur: Pain gets worse or moves to the right lower abdomen New or worsening vomiting or diarrhea Swelling of the abdomen Unable to pass stool for more than three days Fever of 100.4F (38C) or higher, or as directed by your healthcare provider. Blood in vomit or bowel movements (dark red or black color) Jaundice (yellow color of eyes and skin) Weakness, dizziness Chest, arm, back, neck or jaw pain Unexpected vaginal bleeding or missed period Call 911 Call emergency services if any of the following occur: Trouble breathing Confusion Fainting or loss of consciousness Rapid heart rate Seizure Hydrocodone Bitartrate, Acetaminophen Oral tablet What is this medicine? ACETAMINOPHEN; HYDROCODONE (a set a VANESSA hortencia fen; min droe KOE done) is a pain reliever. It is used to treat mild to moderate pain. How should I use this medicine? Take this medicine by mouth. Swallow it with a full glass of water. Follow the directions on the prescription label. If the medicine upsets your stomach, take the medicine with food or milk. Do not take more than you are told to take. Talk to your dice spotter regarding the use of this medicine in children. This medicine is not approved for use in children. What side effects may I notice from receiving this medicine? Side effects that you should report to your doctor or health school childcare attendant as soon as possible: allergic reactions like skin rash, itching or hives, swelling of the face, lips, or tongue breathing problems confusion feeling faint or lightheaded, falls stomach pain yellowing of the eyes or skin Side effects that usually do not require medical attention (report to your doctor or health school childcare attendant if they continue or are bothersome): nausea, vomiting stomach upset What may interact with this medicine? alcohol antihistamines isoniazid medicines for depression, anxiety, or psychotic disturbances medicines for sleep muscle relaxants naltrexone narcotic medicines (opiates) for pain phenobarbital ritonavir tramadol What if I miss a dose? If you miss a dose, take it as soon as you can. If it is almost time for your next dose, take only that dose. Do not take double or extra doses. Where should I keep my medicine? Keep out of the reach of children. This medicine can be abused. Keep your medicine in a safe place to protect it from theft. Do not share this medicine with anyone. Selling or giving away this medicine is dangerous and against the law. Store at room temperature between 15 and 30 degrees C (59 and 86 degrees F). Protect from light. Keep container tightly closed. Throw away any unused medicine after the expiration date. Discard unused medicine and used packaging carefully. Pets and children can be harmed if they find used or lost packages. What should I tell my health care provider before I take this medicine? They need to know if you have any of these conditions: brain tumor Crohn's disease, inflammatory bowel disease, or ulcerative colitis drink more than 3 alcohol-containing drinks per day drug abuse or addiction head injury heart or circulation problems kidney disease or problems going to the bathroom liver disease lung disease, asthma, or breathing problems an unusual or allergic reaction to acetaminophen, hydrocodone, other opioid analgesics, other medicines, foods, dyes, or preservatives or trying to get breast-feeding What should I watch for while using this medicine? Tell your doctor or health school childcare attendant if your pain does not go away, if it gets worse, or if you have new or a different type of pain. You may develop tolerance to the medicine. Tolerance means that you will need a higher dose of the medicine for pain relief. Tolerance is normal and is expected if you take the medicine for a long time. Do not suddenly stop taking your medicine because you may develop a severe reaction. Your body becomes used to the medicine. This does NOT mean you are addicted. Addiction is a behavior related to getting and using a drug for a non-medical reason. If you have pain, you have a medical reason to take pain medicine. Your doctor will tell you how much medicine to take. If your doctor wants you to stop the medicine, the dose will be slowly lowered over time to avoid any side effects. You may get drowsy or dizzy when you first start taking the medicine or change doses. Do not drive, use machinery, or do anything that may be dangerous until you know how the medicine affects you. Stand or sit up slowly. There are different types of narcotic medicines (opiates) for pain. If you take more than one type at the same time, you may have more side effects. Give your health care provider a list of all medicines you use. Your doctor will tell you how much medicine to take. Do not take more medicine than directed. Call emergency for help if you have problems breathing. The medicine will cause constipation. Try to have a bowel movement at least every 2 to 3 days. If you do not have a bowel movement for 3 days, call your doctor or health school childcare attendant. Too much acetaminophen can be very dangerous. Do not take Tylenol (acetaminophen) or medicines that contain acetaminophen with this medicine. Many non-prescription medicines contain acetaminophen. Always read the labels carefully. Ondansetron Oral disintegrating tablet What is this medicine? ONDANSETRON (on MALORIE se yuri) is used to treat nausea and vomiting caused by chemotherapy. It is also used to prevent or treat nausea and vomiting after surgery. How should I use this medicine? These tablets are made to dissolve in the mouth. Do not try to push the tablet through the foil backing. With dry hands, peel away the foil backing and gently remove the tablet. Place the tablet in the mouth and allow it to dissolve, then swallow. While you may take these tablets with water, it is not necessary to do so. Talk to your dice spotter regarding the use of this medicine in children. Special care may be needed. What side effects may I notice from receiving this medicine? Side effects that you should report to your doctor or health school childcare attendant as soon as possible: allergic reactions like skin rash, itching or hives, swelling of the face, lips, or tongue breathing problems dizziness fast or irregular heartbeat feeling faint or lightheaded, falls fever and chills swelling of the hands and feet tightness in the chest Side effects that usually do not require medical attention (report to your doctor or health school childcare attendant if they continue or are bothersome): constipation or diarrhea headache What may interact with this medicine? Do not take this medicine with any of the following medications: -apomorphine -cisapride -dofetilide -dronedarone -pimozide -thioridazine -ziprasidone This medicine may also interact with the following medications: -carbamazepine -phenytoin -rifampicin -tramadol -other medicines that prolong the QT interval (cause an abnormal heart rhythm) What if I miss a dose? If you miss a dose, take it as soon as you can. If it is almost time for your next dose, take only that dose. Do not take double or extra doses. Where should I keep my medicine? Keep out of the reach of children. Store between 2 and 30 degrees C (36 and 86 degrees F). Throw away any unused medicine after the expiration date. What should I tell my health care provider before I take this medicine? They need to know if you have any of these conditions: heart disease history of irregular heartbeat liver disease low levels of magnesium or potassium in the blood an unusual or allergic reaction to ondansetron, granisetron, other medicines, foods, dyes, or preservatives or trying to get breast-feeding What should I watch for while using this medicine? Check with your doctor or health school childcare attendant as soon as you can if you have any sign of an allergic reaction. You have been given the following additional information: Abdominal Pain, Unknown Cause, (Female) Hydrocodone Bitartrate, Acetaminophen Oral tablet Ondansetron Oral disintegrating tablet (Electronically signed by Meir Corona Dr. 01/17/2017 3:56)
--- NOTE | 2017-01-20 09:43 | ED MAR SUMMARY ---
..... Medication Administration Record [facility] [address] [place] [address] Patient: ALETA ARELLANO Visit ID: [id number] 46y, F Weight: 136.0 kg Height/Length: 68 in BMI: 45.6 ALLERGIES: No Known Drug Allergy Start 01:56 01/17/2017 Trupti Jansen,, Stop 03:06 01/17/2017 Trupti Jansen, Medication Administered: IV NS (SALINE), Dose: IV Fluids over 1 hour(s), Rate: 1000 mL/hr, Dispensed: 1000 mL bag, Site: #1 left forearm. Medication Ordered: IV NS : initial bolus none -, then 1000 mL/hr for X1 (NOW). Given 02:07 01/17/2017 Trupti Jansen, Medication Administered: DEMEROL [IVP] (MEPERIDINE HCL), Dose: 50 mg IVP over 1 minute(s), Site: #1 left forearm. Medication Ordered: Demerol IV 50 mg (HIGH ALERT MEDICATION, NOW). Given 03:43 01/17/2017 Trupti Jansen, Medication Administered: DEMEROL [IVP] (MEPERIDINE HCL), Dose: 50 mg IVP over 1 minute(s), Site: #1 left forearm. Medication Ordered: Demerol IV 50 mg (HIGH ALERT MEDICATION, NOW).
== END 2017-01-17 04:00 | disposition home or self-care (01) ==
LOC: ED SRH 00:52
DX: R10.11 Right upper quadrant pain (principal); I10 Essential (primary) hypertension; Z79.899 Other long term (current) drug therapy
CPT/HCPCS: 90004; 90074; 90100; 92235; 92530; 92760; 92761; 92762; 92763; 92764; 92765; 92766; 92767; 95059

== ENCOUNTER 2017-02-01 00:21 | Emergency (ER) | payer OTHER ==
--- NOTE | 2017-02-01 01:31 | ED NURSING NOTES ---
Clinical Report - Nurses [facility] [place] [address] 02/01/2017 0:22 [id number] Triage time 00:56. Chief Complaint: CHEST PAIN and UPPER ABDOMINAL PAIN, INDIGESTION and BACK PAIN. --01:01 Terri De La Cruz R.N. 00:56 02/01/17. HR: 75. RR: 16. O2 saturation: 100% on room air. Pain level now: 04/18. --01:01 Terri De La Cruz R.N. Weight: 127 kg stated. Height/Length: 60 inches Per Patient. BMI: 54.7. --01:00 Terri De La Cruz R.N. Medications Zantac Oral. --00:58 Terri De La Cruz R.N. Allergies No Known Drug Allergy. --00:58 Terri De La Cruz R.N. History Historian: patient. ( pt thinks it may be her gall bladder but wants to be checked to make sure. was seen a few weeks ago for similar pain but it was her gall bladder, still trying to get in with surgeon for follow up.). --01:01 Terri De La Cruz R.N. SOCIAL HX: Never smoker. Occasional alcohol use. No drug use. --01:01 Terri De La Cruz R.N. NURSING PROGRESS NOTES EKG time: (104). EKG was performed by a tech and shown to the ED physician. --01:03 Terri De La Cruz R.N. ( pt sent back to waiting room for ED room to open up.). --01:03 Terri De La Cruz R.N. DISPOSITION / DISCHARGE The patient left the Emergency Department without being seen by a physician; patient was accompanied by spouse. The patient appears to be alert and oriented x4. She notified the ED staff prior to leaving the department and stated is leaving the ED due to personal reasons and the long waiting time. She left the Emergency Department ambulatory and via private vehicle. --01:30 Terri De La Cruz R.N. Locked/Released at 02/01/2017 4:45 by Terri De La Cruz R.N.
--- NOTE | 2017-02-01 01:31 | ED NURSING NOTES ---
Clinical Report - Nurses [facility] [place] [address] 02/01/2017 0:22 [id number] Triage time 00:56. Chief Complaint: CHEST PAIN and UPPER ABDOMINAL PAIN, INDIGESTION and BACK PAIN. --01:01 Terri De La Cruz R.N. 00:56 02/01/17. HR: 75. RR: 16. O2 saturation: 100% on room air. Pain level now: 04/18. --01:01 Terri De La Cruz R.N. Weight: 127 kg stated. Height/Length: 60 inches Per Patient. BMI: 54.7. --01:00 Terri De La Cruz R.N. Medications Zantac Oral. --00:58 Terri De La Cruz R.N. Allergies No Known Drug Allergy. --00:58 Terri De La Cruz R.N. History Historian: patient. ( pt thinks it may be her gall bladder but wants to be checked to make sure. was seen a few weeks ago for similar pain but it was her gall bladder, still trying to get in with surgeon for follow up.). --01:01 Terri De La Cruz R.N. SOCIAL HX: Never smoker. Occasional alcohol use. No drug use. --01:01 Terri De La Cruz R.N. NURSING PROGRESS NOTES EKG time: (104). EKG was performed by a tech and shown to the ED physician. --01:03 Terri De La Cruz R.N. ( pt sent back to waiting room for ED room to open up.). --01:03 Terri De La Cruz R.N. DISPOSITION / DISCHARGE The patient left the Emergency Department without being seen by a physician; patient was accompanied by spouse. The patient appears to be alert and oriented x4. She notified the ED staff prior to leaving the department and stated is leaving the ED due to personal reasons and the long waiting time. She left the Emergency Department ambulatory and via private vehicle. --01:30 Terri De La Cruz R.N. Locked/Released at 02/01/2017 4:45 by Terri De La Cruz R.N.
--- NOTE | 2017-02-01 04:45 | ED MED RECONCILIATION SUMMARY ---
Patient: ALETA ARELLANO Medication Reconciliation Report [facility] VisitID: [id number] [address] [place] [place] [address] 46y, F Registration Date/Time: 02/01/2017 Weight: 127.0 kg Height/Length: 60 in. BMI: 54.7 ALLERGIES: No Known Drug Allergy The patient's Home Medications are listed below: THE FOLLOWING MEDICATIONS NEED TO BE RECONCILED: Zantac Oral The source(s) of the original Home Medication information: Not obtained. The following Medications were given to the patient in the Emergency Department: None. The following Medications were prescribed to the patient: None.
--- NOTE | 2017-02-01 04:45 | ED MAR SUMMARY ---
..... Medication Administration Record [facility] [address] [place], [place] [id number] Patient: ALETA ARELLANO Visit ID: [id number] 46y, F Weight: 127.0 kg Height/Length: 60 in BMI: 54.7 ALLERGIES: No Known Drug Allergy
--- NOTE | 2017-02-01 04:45 | ED MED RECONCILIATION SUMMARY ---
Patient: ALETA ARELLANO Medication Reconciliation Report [facility] VisitID: [id number] [address] [place] [place] [address] 46y, F Registration Date/Time: 02/01/2017 Weight: 127.0 kg Height/Length: 60 in. BMI: 54.7 ALLERGIES: No Known Drug Allergy The patient's Home Medications are listed below: THE FOLLOWING MEDICATIONS NEED TO BE RECONCILED: Zantac Oral The source(s) of the original Home Medication information: Not obtained. The following Medications were given to the patient in the Emergency Department: None. The following Medications were prescribed to the patient: None.
--- NOTE | 2017-02-01 04:45 | ED MAR SUMMARY ---
..... Medication Administration Record [facility] [address] [place], [place] [id number] Patient: ALETA ARELLANO Visit ID: [id number] 46y, F Weight: 127.0 kg Height/Length: 60 in BMI: 54.7 ALLERGIES: No Known Drug Allergy
== END 2017-02-01 01:24 | disposition left against medical advice (07) ==
LOC: ED SRH 00:21
DX: Z53.21 Procedure and treatment not carried out due to patient leaving prior to being seen by health care provider (principal)

== ENCOUNTER 2017-02-05 11:02 | Emergency (ER) | payer OTHER ==
--- NOTE | 2017-02-05 12:04 | DIAGNOSTIC IMAGING REPORT ---
PROCEDURE: XR CHEST 2 VIEW INDICATION: CHEST PAIN TECHNIQUE: PA and lateral views. COMPARISON: None. FINDINGS: Allowing for overlying wires and electrodes, lungs are clear. Heart and mediastinum are normal. Thorax is normal. IMPRESSION: 1. Negative chest.
--- NOTE | 2017-02-05 13:25 | DIAGNOSTIC IMAGING REPORT ---
PROCEDURE: US ABDOMEN ULTRASOUND-LIMITED INDICATION: Right abdominal pain. TECHNIQUE: Madsen scale and color Doppler sonographic images of the abdomen were obtained. COMPARISON: Compared to CT abdomen and pelvis on 12/31/2015. FINDINGS: Gallbladder is normal. No evidence of gallstones. Common duct is normal (). Portions of the liver are seen and there is increased echogenicity of the liver. Portions of the pancreas, aorta, and right kidney are seen, and are normal. IMPRESSION: 1. Negative ultrasound of the gallbladder and right upper quadrant.
--- NOTE | 2017-02-05 14:35 | ED CLINICAL REPORT ---
Clinical Report - Physicians/Mid Levels [facility] [address] [place] [address] 02/05/2017 11:03 Patient: ALETA ARELLANO Time Seen: 11:23. Arrived- By private vehicle. Historian- patient. HISTORY OF PRESENT ILLNESS Chief Complaint: CHEST PAIN. BACK PAIN. At its maximum, severity described as moderate. When seen in the E.D., severity described as moderate. Modifying factors. Not worsened by anything. Not relieved by anything. It is described as dull and "pain" and it is described as located across the chest and in the epigastric area and RUQ of the abdomen and radiating to the upper back. This started about 2 hours ago and is still present. It was gradual in onset and has been waxing/waning. Onset during light activity. No vomiting, difficulty breathing or diaphoresis. (Started while participating in light activity (2 hours ago). Describes the quality as dull, sharp. Relates location as in the central chest area, left chest area, left shoulder and left arm. Notes pain level as 8/10 on arrival. The patient has had difficulty breathing and nausea. No vomiting.). Similar symptoms previously: ( Pt states she has had similar symptoms for the past couple of years intermittently. She has been seen at [facility] with a negative CTPA and other work up at that time). Recent medical care: The patient was seen recently at this facility in the emergency department. Seen for similar symptoms. Evaluation/treatment: CXR, labs, EKG and medication prescribed. Diagnosis: non-cardiac pain and GI problems. REVIEW OF SYSTEMS Last normal menstrual period was 1 week ago. No fever, chills, pedal edema, calf pain or fainting episodes. No headache, sore throat, black stools, difficulty with urination or skin rash. No joint pain or bloody stools. The patient has had a mild nonproductive cough. No blood tinged sputum or frankly bloody sputum. She has had abdominal pain. The pain is described as located in the upper abdomen, right upper quadrant and epigastrium. All systems otherwise negative, except as recorded above. PAST HISTORY PROBLEMS: Abdominal Pain. Diabetes Mellitus. Back Pain. Obesity. Hypertension. Depression. Anxiety Reaction. SURGERIES: Appendectomy. . Tonsillectomy. No history of aortic disease, coronary artery disease, congestive heart failure, heart rhythm problems or pulmonary embolism. Medications: Vicodin Oral. Zantac Oral. Allergies: No Known Drug Allergy. SOCIAL HISTORY Never smoker. Occasional alcohol use. No drug use. Is a local resident. ADDITIONAL NOTES The nursing notes have been reviewed. PHYSICAL EXAM Vital Signs: 02/05/2017 11:08 BP: 156/93. HR: 89. RR: 20. O2 saturation: 100%. Pain level now: 8/10. Appearance: Alert. Oriented X3. Anxious. Patient in moderate distress. Eyes: Eyes normal inspection. No scleral icterus or pale conjunctivae. ENT: Pharynx normal. No pharyngeal erythema or tonsillar exudate. The mucous membranes are not dry. Neck: Normal inspection. Neck supple. CVS: Normal heart rate and rhythm. Heart sounds normal. Pulses normal. Respiratory: No respiratory distress. Chest pain reproducible with palpation of the anterior chest wall and with movement of the trunk. Breath sounds normal. No decreased air movement, rales, rhonchi or wheezes. Abdomen: Mild tenderness in the right upper quadrant and epigastric area. No Ervin's sign present. Bowel sounds normal. No organomegaly. No mass. Severely obese. No rebound tenderness or guarding. Back: Normal external inspection. Skin: Skin warm and dry. Normal skin color. Normal skin turgor. Mild, erythematous skin rash located on the face (malar distribution). Extremities: Extremities exhibit normal ROM. No calf tenderness. No lower extremity edema. Neuro: Oriented X 3. No motor deficit. No sensory deficit. LABS, X-RAYS, AND EKG EKG: EKG time: (11:20). Normal sinus rhythm. Rate: 85. Normal P waves. Normal SHELBI. Normal QRS complex. Normal axis. Non-specific ST segment / T wave abnormalities. Non-specific T wave flattening in lead III and aVF. EKG unchanged when compared with prior EKG. (no change from [id number]). The study has been interpreted contemporaneously by me. The EKG appears to be a good tracing. Rhythm Strip #1: Normal sinus rhythm. Regular rhythm. Narrow QRS complexes. No ectopy. Chest X-ray: No acute disease. Normal lung markings present. Normal heart size. Mediastinum normal. Great vessels normal. No infiltrate. Views: PA and lateral. Technique: good. The X-rays were interpreted contemporaneously by me. Abdominal Sonogram: Normal study. (Exam(s): US ABDOMEN ULTRASOUND-LIMITED PROCEDURE: US ABDOMEN ULTRASOUND-LIMITED INDICATION: Right abdominal pain. TECHNIQUE: Madsen scale and color Doppler sonographic images of the abdomen were obtained. COMPARISON: Compared to CT abdomen and pelvis on 12/31/2015. FINDINGS: Gallbladder is normal. No evidence of gallstones. Common duct is normal (). Portions of the liver are seen and there is increased echogenicity of the liver. Portions of the pancreas, aorta, and right kidney are seen, and are normal. IMPRESSION: 1. Negative ultrasound of the gallbladder and right upper quadrant.). The study was independently viewed by me and interpreted by the radiologist. The study was discussed with the radiologist (via tech then PACS report). Laboratory Tests: UA-Culture if indicated: (JOLENE: 02/05/2017 12:00) ( MsgRcvd 02/05/2017 12:29) Final results Test Result Flag Units (Reference) URINE COLOR STRAW URINE APPEARANCE CLEAR URINE GLUCOSE NEGATIVE (NEGATIVE) URINE BILIRUBIN NEGATIVE (NEGATIVE) URINE KETONE NEGATIVE (NEGATIVE) URINE SPECIFIC GRAVITY <= 1.005 L (1.010-1.030) URINE PH 5.5 (5.0-8.0) URINE PROTEIN NEGATIVE (NEGATIVE) URINE UROBILINOGEN 0.2 EU/dL (0.2-1.0) URINE NITRITE NEGATIVE (NEGATIVE) URINE BLOOD TRACE-INTACT (NEGATIVE) URINE LEUK ESTERASE NEGATIVE (NEGATIVE) URINE RBC NONE SEEN rbc/hpf (0-1) URINE WBC NONE SEEN wbc/hpf (0-1) URINE EPITHELIAL CELLS 0-1 EPI/hpf (0-5) URINE BACTERIA TRACE (<1+) (NONE SEEN) URINE COMMENT CULT NOT INDICATED URINE CULTURES ARE SET-UP BASED ON THE FOLLOWING CRITERIA:POSITIVE NITRITEPOSITIVE LEUKOCYTE ESTERASEGREATER THAN 10 WHITE BLOOD CELLSMODERATE (2+) OR GREATER BACTERIA CBC w Diff: (JOLENE: 02/05/2017 11:25) ( MsgRcvd 02/05/2017 11:42) Final results Test Result Flag Units (Reference) WHITE BLOOD COUNT 9.2 K/uL (4.5-11.5) RED BLOOD COUNT 4.51 M/uL (4.00-5.20) HEMOGLOBIN 14.1 gm/dL (12.0-16.0) HEMATOCRIT 42.3 % (36.0-46.0) MEAN CELL VOLUME 94 fL (80-100) MEAN CORPUSCULAR HGB 31 pg (26-34) MEAN CORPUSCULAR HGB CONC 33 g/dL (31-37) RED CELL DISTRIBUTION WIDTH 12.6 % (11.6-14.8) PLATELET COUNT 268 K/uL (150-400) NEUTROPHIL % 46.9 L % (50-75) LYMPH % 43.0 H % (25-40) MONO % 7.6 % (3-14) EOSINOPHIL % 2.2 % (0-4) BASOPHIL % 0.3 % (0-2) Troponin-I: (JOLENE: 02/05/2017 13:20) ( [facility] 02/05/2017 14:15) Final results Test Result Flag Units (Reference) TROPONIN I <0.05 L ng/mL (0.00-1.5) TROPONIN REFERENCE RANGE:<0.1 NEGATIVE0.1-1.5 INDETERMINANT>1.5 POSITIVE BNP: (JOLENE: 02/05/2017 11:25) ( [facility] 02/05/2017 12:06) Final results Test Result Flag Units (Reference) B-TYPE NATRIURETIC PEPTIDE 6.9 pg/ml (5-100) CHEM 13 PANEL: (JOLENE: 02/05/2017 11:25) ( [facility] 02/05/2017 11:56) Final results Test Result Flag Units (Reference) GLUCOSE 154 H mg/dL (70-110) BUN 15 mg/dL (7-18) CREATININE 0.9 mg/dL (0.6-1.3) Estimated GFR >60 mL/min Estimated GFR- >60 mL/min Note: Persistent reduction over 3 months in eGFR<60 mL/min/1.73 m2 defines CKD. Patients with eGFR values>=60 mL/min/1.73 m2 may also have CKD if evidence ofpersistent proteinuria. Additional information may be foundat www.kidney.org. SODIUM 142 mmol/L (136-145) POTASSIUM 4.1 mmol/L (3.5-5.1) CHLORIDE 105 mmol/L (98-107) CARBON DIOXIDE 28 mmol/L (21-32) CALCIUM 9.3 mg/dL (8.5-10.1) TOTAL PROTEIN 7.8 g/dL (6.4-8.2) ALBUMIN 3.8 g/dL (3.3-5.0) BILIRUBIN, TOTAL 0.5 mg/dL (0.0-1.0) ALKALINE PHOSPHATASE 95 U/L (46-116) AST (SGOT) 23 U/L (15-37) ALT (SGPT) 49 U/L (12-78) CPK 65 U/L (24-260) MAGNESIUM 1.6 L mg/dL (1.8-2.4) AMYLASE 43 U/L (25-115) TROPONIN I <0.05 L ng/mL (0.00-1.5) TROPONIN REFERENCE RANGE:<0.1 NEGATIVE0.1-1.5 INDETERMINANT>1.5 POSITIVE THYROID STIMULATING HORMONE 2.259 uIU/mL (0.34-3.74) . Pulse Oximetry: 02/05/2017 11:08 O2 saturation: 100%. (FIO2 - room air). Interpretation: normal. PROGRESS AND PROCEDURES Course of Care: Normal Saline 1 liter IVPB given. ASA 325 mg PO given. Zofran 4 mg IVP given. Dilaudid 1 mg IVP given. PERC neg and pain is not pleuritic (now or in the past) and has had a neg CTPA in past approx 8 months per pt. Top I x 2 negstive - as it was about 2 weeks ago as well. Patient/family counseled. Old ED records reviewed. Disposition: Discharged. Condition: stable and improved. CLINICAL IMPRESSION Chest wall pain .12 lead EKG performed. Essential hypertension. Mild hypomagnesemia. Clinical picture does not suggest congestive heart failure, abnormal EKG, myocardial infarction, unstable angina or angina. Clinical picture does not suggest pericarditis, aortic dissection, pulmonary embolism, pneumonia or pneumothorax. Clinical picture does not suggest gallbladder disease. Malar rash - consider Lupus. INSTRUCTIONS Do not work for two days. Drink plenty of fluids. No alcohol. Warnings: Further evaluation is necessary in order to recheck abnormal lab, obtain test results, conduct further tests and assess the possibility of serious illness. It is very important to follow up with a physician. SEDATIVE MEDICATION: You were given sedative medication during your visit. Do not drive or operate dangerous machinery. CONTROLLED SUBSTANCE WARNINGS. GENERAL WARNINGS: Return or contact your physician immediately if your condition worsens or changes unexpectedly, if not improving as expected, or if other problems arise. Your Current Medications: CONTINUE TAKING THE FOLLOWING MEDICATIONS: Vicodin Oral. Zantac Oral. Prescription Medications: Hydrocodone/APAP 5mg / 325mg: take 1 orally every 12 hours as needed for pain. Dispense five (5). No refill. Carafate 1 gm tablets: take 1 orally four times daily (1 hour before meals and at bedtime). Dispense sixty (60). No refills. Substitution is permissible. Prilosec 20 mg capsules: Take 1 capsule orally once daily. Dispense fifteen (15). No refills. Substitution is permissible. Follow-up: Follow up with your doctor in about two days. Screening today revealed the patient's blood pressure to be in the hypertensive range. The patient should follow up with a primary care provider for blood pressure management. (Electronically signed by Butch Lowry DO 02/05/2017 22:57)
--- NOTE | 2017-02-05 14:35 | ED ORDER SUMMARY ---
..... Patient: ALETA ARELLANO OrderSheet [facility] VisitID: [id number] [place] [address] 46y, F Registration Date/Time: 02/05/2017 ORDER SHEET Weight: 127.0 kg (stated) Allergies: No Known Drug Allergy GENERAL ORDERS: Chest 2V Urgent ([facility] (Ack 11:33 TBergley) (11:43 TBergley) Product Safety Specialist (Continuous) ([facility]2017 [facility] (11:30 MWinterer R.N.) (Ack 11:33 TBergley) (11:33 TBergley) UA-Culture if indicated Urgent (02/05/2017 [facility] (Ack 11:33 TBergley) (12:07 Evangelist) Cardiac Panel Stat (02/05/2017 [facility] (Ack 11:33 TBergley) (11:37 MWinterer R.N.) BNP Urgent (02/05/2017 [facility] (Ack 11:33 TBergley) (11:37 MWinterer R.N.) Amylase Urgent (02/05/2017 [facility] (Ack 11:33 TBergley) (11:37 MWinterer R.N.) TSH Urgent (02/05/2017 [facility] (Ack 11:33 TBergley) (11:37 MWinterer R.N.) Oxygen (2 L/min) (NC) (:02/05/2017 [facility]) (11:30 MWinterer R.N.) (Ack 11:33 TBergley) (11:33 TBergley) Pulse oximeter (02/05/2017 [facility]) (11:31 MWinterer R.N.) (Ack 11:33 TBergley) (11:33 TBergley) EKG - ER Stat (02/05/2017 [facility]) (11:31 MWinterer R.N.) (Ack 11:33 TBergley) (11:33 TBergley) Vitals (11:29 02/05/2017 [facility]) (11:31 MWinterer R.N.) (Ack 11:33 TBergley) (11:33 TBergley) US Abdomen Limited (No) Urgent (12:05 02/05/2017 [facility]) (Ack 12:08 TBergley) (12:43 TBergley) Troponin-I (repeat now) Urgent (13:04 02/05/2017 [facility]) (Ack 13:07 TBergley) (13:16 TBergley) MEDICATION ORDERS: Aspirin PO 325 mg (Do not crush or chew, NOW) (11:18 02/05/2017 MWinterer R.N. per protocol) (11:19 MWinterer R.N.) IV FLUIDS: IV NS : initial bolus 500 mL (1000 mL/hr), then 500 mL/hr for X1 (NOW) (11:29 02/05/2017 [facility]) (11:36 MWinterer R.N.) Dilaudid IV 1 mg (HIGH ALERT MEDICATION, NOW) (13:36 02/05/2017 [facility]) (Ack 13:41 MWinterer R.N.) (13:51 MWinterer R.N.) Zofran IV 4 mg (NOW) (14:56 02/05/2017 [facility]) (15:04 MWinterer R.N.) ORDER SHEET NOTES: [Electronically signed by Lisa Hussein R.N. (15:16 02/05/2017)] [Electronically signed by Butch Lowry DO (22:56 02/05/2017)] [Electronically locked/signed by Lisa Hussein R.N. (15:16 02/05/2017)]
--- NOTE | 2017-02-05 14:35 | ED ORDER SUMMARY ---
..... Patient: ALETA ARELLANO OrderSheet [facility] VisitID: [id number] [place] [address] 46y, F Registration Date/Time: 02/05/2017 ORDER SHEET Weight: 127.0 kg (stated) Allergies: No Known Drug Allergy GENERAL ORDERS: Chest 2V Urgent ([facility] (Ack 11:33 TBergley) (11:43 TBergley) Hr Leader (Continuous) ([facility] (11:30 MWinterer R.N.) (Ack 11:33 TBergley) (11:33 TBergley) UA-Culture if indicated Urgent (02/05/2017 [facility] (Ack 11:33 TBergley) (12:07 Evangelist) Cardiac Panel Stat ([facility]05[facility] (Ack 11:33 TBergley) (11:37 MWinterer R.N.) BNP Urgent (02/05/2017 [facility]) (Ack 11:33 TBergley) (11:37 MWinterer R.N.) Amylase Urgent (02/05/2017 [facility]) (Ack 11:33 TBergley) (11:37 MWinterer R.N.) TSH Urgent (02/05/2017 [facility]) (Ack 11:33 TBergley) (11:37 MWinterer R.N.) Oxygen (2 L/min) (NC) (:02/05/2017 [facility]) (11:30 MWinterer R.N.) (Ack 11:33 TBergley) (11:33 TBergley) Pulse oximeter (02/05/2017 [facility]) (11:31 MWinterer R.N.) (Ack 11:33 TBergley) (11:33 TBergley) EKG - ER Stat (02/05/2017 [facility]) (11:31 MWinterer R.N.) (Ack 11:33 TBergley) (11:33 TBergley) Vitals (11:29 02/05/2017 [facility]) (11:31 MWinterer R.N.) (Ack 11:33 TBergley) (11:33 TBergley) US Abdomen Limited (No) Urgent (12:05 02/05/2017 [facility]) (Ack 12:08 TBergley) (12:43 TBergley) Troponin-I (repeat now) Urgent (13:04 02/05/2017 [facility]) (Ack 13:07 TBergley) (13:16 TBergley) MEDICATION ORDERS: Aspirin PO 325 mg (Do not crush or chew, NOW) (11:18 02/05/2017 MWinterer R.N. per protocol) (11:19 MWinterer R.N.) IV FLUIDS: IV NS : initial bolus 500 mL (1000 mL/hr), then 500 mL/hr for X1 (NOW) (11:29 02/05/2017 [facility]) (11:36 MWinterer R.N.) Dilaudid IV 1 mg (HIGH ALERT MEDICATION, NOW) (13:36 02/05/2017 [facility]) (Ack 13:41 MWinterer R.N.) (13:51 MWinterer R.N.) Zofran IV 4 mg (NOW) (14:56 02/05/2017 [facility]) (15:04 MWinterer R.N.) ORDER SHEET NOTES: [Electronically signed by Lisa Hussein R.N. (15:16 02/05/2017)] [Electronically signed by Butch Lowry DO (22:56 02/05/2017)] [Electronically locked/signed by Lisa Hussein R.N. (15:16 02/05/2017)]
--- NOTE | 2017-02-05 14:35 | ED NURSING NOTES ---
Clinical Report - Nurses [facility] [address] [place] [address] 02/05/2017 11:03 Patient: ALETA ARELLANO TRIAGE Acuity: LEVEL 3. Chief Complaint: CHEST PAIN. Alert. No acute distress. SEPSIS SCREEN: Sepsis Screen. Negative (no infection suspected/documented). --11:15 Lisa Hussein R.N. 11:08 02/05/17. BP: 156/93. HR: 89. RR: 20. O2 saturation: 100% on room air. Pain level now: 8/10. --11:15 Lisa Hussein R.N. Weight: 127 kg stated. Height/Length: 60 inches Per Patient. BMI: 54.7. --11:12 Lisa Hussein R.N. Medications Zantac Oral. --11:10 Lisa Hussein R.N. Vicodin Oral. --12:14 Gracy Harrell R.N. Medication/allergy information source: the patient. --11:15 Lisa Hussein R.N. Allergies No Known Drug Allergy. --11:11 Lisa Hussein R.N. History Arrived by private vehicle. Historian: patient. Accompanied by friend. Primary physician (Tariq). Started while participating in light activity (2 hours ago). Describes the quality as dull, sharp. Relates location as in the central chest area, left chest area, left shoulder and left arm. Notes pain level as 8/10 on arrival. The patient has had difficulty breathing and nausea. No vomiting. Treatment PRINTS AND DRAWINGS CURATOR: (zantac). PAST MEDICAL HX: Last normal menstrual period was 1 week ago. SOCIAL HX: Never smoker. Occasional alcohol use. No drug use. FALL RISK ASSESSMENT: Fall risk assessment completed. No fall risk identified. NUTRITIONAL RISK ASSESSMENT: The nutritional risk assessment revealed no deficiencies. FUNCTIONAL ASSESSMENT: Functional assessment: no impairments noted. LEARNING NEEDS ASSESSMENT: The learning needs assessment revealed no barriers. SKIN INTEGRITY ASSESSMENT: Skin integrity risk assessment completed. No skin integrity risk identified. --11:15 Lisa Hussein R.N. PROBLEMS: Abdominal Pain. Diabetes Mellitus. Back Pain. Obesity. Hypertension. Depression. Anxiety Reaction. --11:11 Lisa Hussein R.N. ADDITIONAL SURGERIES: Appendectomy. . Tonsillectomy. --11:11 Lisa Hussein R.N. Assessment GENERAL / NEURO / PSYCH: Alert. Oriented X 4. Appears anxious. [place] Coma Scale: 15- eyes open spontaneously (4); best verbal response- oriented x 4 (5); best motor response- obeys commands (6). Patient appears calm and cooperative. RESPIRATORY: Respirations not labored. CVS: Capillary refill less than 2 seconds. GI / : Abdomen soft and nontender. SKIN: Mucous membranes are pink. Skin is warm and dry. --11:15 Lisa Hussein R.N. Interventions ID band on patient. To treatment room. --11:15 Lisa Hussein R.N. PHYSICAL ASSESSMENT Ambulatory to room. GENERAL / NEURO / PSYCH: Alert. Oriented X 4. Appears in no acute distress. Appears anxious. HEENT: Mucous membranes are pink. RESPIRATORY: Respirations not labored. CVS: Pulses within normal limits. Capillary refill less than 2 seconds. GI / : Abdomen soft and nontender. EXTREMITIES: No lower extremity edema. SKIN: Skin is warm and dry. --11:17 Lisa Hussein R.N. NURSING PROGRESS NOTES EKG time: (1120). EKG was performed by a tech and shown to the ED physician. --11:17 Lisa Hussein R.N. laboratory monitor, pulse oximeter and NIBP monitor placed on patient; monitor alarms on. Patient gowned. Reassurance given. Two patient identifiers checked. Call light placed in reach. Side rails up x 2. Bed placed in lowest position. Brakes of bed on. Patient ready for evaluation- chart flagged and ED physician notified. --11:18 Lisa Hussein R.N. 11:18 02/05/2017 Site #1 started via IV in the right antecubital space with an 20g angiocath, with aseptic technique and good blood return; one attempt. Blood drawn: rainbow set. Labeled in the presence of the patient and sent to the lab. Saline lock flushed with 10 mL saline. --11:18 Lisa Hussein R.N. 11:18 02/05/17. RESPIRATORY: No respiratory distress. CVS: Normal sinus rhythm noted. SKIN: Skin is warm and dry. --11:18 Lisa Hussein R.N. 11:19 02/05/2017 Aspirin PO 325 mg given. Allergies verified and confirmed 5 rights. --11:19 Lisa Hussein R.N. 11:36 02/05/2017 Started bag #1 1000 mL IV Fluids IV NS (Saline); at 999 mL/hr over 30 minute(s) via site #1 via IV pump. Allergies verified and confirmed 5 rights. IV patency established. IV site checked: no pain, redness, or swelling. IV flushed thoroughly pre- and post-medication administration. --11:36 Lisa Hussein R.N. 13:18 02/05/2017 IV Fluids IV NS Discontinued: bag #1 infused. Total amount infused: 1000 mL. IV patency established. IV site checked: no pain, redness, or swelling. IV flushed thoroughly. --13:18 Lisa Hussein R.N. 13:51 02/05/2017 Dilaudid (HYDROmorphone HCl PF) IVP 1 mg given over 2 minute(s) via site #1. Allergies verified, confirmed 5 rights and sedative warning given to the patient. IV patency established. IV site checked: no pain, redness, or swelling. IV flushed thoroughly pre- and post-medication administration. IVP given by RN. --13:51 Lisa Hussein R.N. 13:51 02/05/17. BP: 149/98. HR: 94. RR: 18. O2 saturation: 100% on room air. Pain level now: 01/17. --13:52 Lisa Hussein R.N. 14:21 02/05/2017 Dilaudid IVP Response: no adverse reaction pain is improving. The patient feels better. --14:21 Lisa Hussein R.N. 15:04 02/05/2017 Zofran (Ondansetron HCl) IVP 4 mg given over 1 minute(s) via site #1. Allergies verified and confirmed 5 rights. IV patency established. IV site checked: no pain, redness, or swelling. IV flushed thoroughly pre- and post-medication administration. IVP given by RN. --15:04 Lisa Hussein R.N. DISPOSITION / DISCHARGE Departure time: 15:Feb 05 2017. Condition at departure: improved and stable. No learning barriers present. Discharge instructions provided and reviewed with the patient. Reviewed medication(s) side effects, precautions and dosing information. Prescription(s) given to the patient. Patient verbalized understanding. Written instructions provided in Czech. The patient was discharged by the nurse practitioner. She was discharged home and accompanied by family. She left the Emergency Department in a wheelchair and via private vehicle. Family member driving. --15:16 Lisa Hussein R.N. 15:15 02/05/17. BP: 134/77. HR: 90. RR: 18. O2 saturation: 100% on room air. Temp: 98.4 F (oral). Pain level now: 0/10. --15:16 Lisa Hussein R.N. 15:11 02/05/2017 Site #1 removed upon discharge. Catheter intact. Manual pressure and bandage applied. --15:16 Lisa Hussein R.N. Locked/Released at 02/05/2017 15:16 by Lisa Hussein R.N.
--- NOTE | 2017-02-05 22:57 | ED DISCHARGE INSTRUCTIONS ---
Patient: ALETA ARELLANO General Instructions [facility] VisitID: [id number] [place] [address] 46y, F Registration Date/Time: 02/05/2017 Chest wall pain .12 lead EKG performed. Essential hypertension. Mild hypomagnesemia. Malar rash - consider Lupus. INSTRUCTIONS Do not work for two days. Drink plenty of fluids. No alcohol. Warnings: Further evaluation is necessary in order to recheck abnormal lab, obtain test results, conduct further tests and assess the possibility of serious illness. It is very important to follow up with a physician. SEDATIVE MEDICATION: You were given sedative medication during your visit. Do not drive or operate dangerous machinery. CONTROLLED SUBSTANCE WARNINGS. GENERAL WARNINGS: Return or contact your physician immediately if your condition worsens or changes unexpectedly, if not improving as expected, or if other problems arise. Your Current Medications: CONTINUE TAKING THE FOLLOWING MEDICATIONS: Vicodin Oral. Zantac Oral. Prescription Medications: Hydrocodone/APAP 5mg / 325mg: take 1 orally every 12 hours as needed for pain. Dispense five (5). No refill. Carafate 1 gm tablets: take 1 orally four times daily (1 hour before meals and at bedtime). Dispense sixty (60). No refills. Substitution is permissible. Prilosec 20 mg capsules: Take 1 capsule orally once daily. Dispense fifteen (15). No refills. Substitution is permissible. Follow-up: Follow up with your doctor in about two days. Screening today revealed the patient's blood pressure to be in the hypertensive range. The patient should follow up with a primary care provider for blood pressure management. ADDITIONAL INFORMATION Chest Wall Pain: Costochondritis The chest pain that you have had today is caused by Costochondritis. This condition is due to an inflammation of the cartilage joining the ribs to the breastbone. It is not caused by heart or lung problems. Although the exact cause for costochondritis is not known, it often occurs during times of emotional stress. It can be painful, but it is not dangerous. It usually disappears within one to two weeks, but may recur. Rarely, a more serious condition may cause symptoms similar to costochondritis; therefore, watch for the warning signs listed below. Home Care: If you feel that emotional stress is a cause of your condition, try to identify sources of that stress. It may not be obvious! Learn ways to deal with the stress in your life such as regular exercise, muscle relaxation, meditation, or simply taking time out for yourself. For more information about this, consult your doctor or go to a local bookstore and review books and tapes available on the subject of stress reduction. You may use acetaminophen (Tylenol) or ibuprofen (Motrin, Advil) to control pain, unless another pain medicine was prescribed. [ NOTE: If you have liver disease or ever had a stomach ulcer, talk with your doctor before using these medicines.] The use of heat (hot wet compress or heating pad) with or without local analgesic creams (Deep Heat Rub, Gene Mercado) will be helpful to reduce pain. Follow Up with your doctor as directed or sooner if you do not start to improve within the next two days. Get Prompt Medical Attention if any of the following occur: A change in the type of pain: if it feels different, becomes more severe, lasts longer, or spreads into your shoulder, arm, neck, jaw or back Shortness of breath or increased pain with breathing Weakness, dizziness, or fainting Cough with dark colored sputum (phlegm) or blood Abdominal pain Dark red or black stools Fever of 100.4F (38C) or higher, or as directed by your healthcare provider High Blood Pressure -- To Be Confirmed [No Tx] Your blood pressure was higher today than normal. Sometimes anxiety or pain can cause a temporary rise in blood pressure that later returns to normal. If your blood pressure is high on one measurement, this does not mean that you have hypertension (a chronic illness). However, you must have your blood pressure measured again within the next few days to find out if its still high. A normal blood pressure is 120/80 or less. The first (top) number is the "systolic" pressure. The second (bottom) number is the "diastolic" pressure. Hypertension exists when either the top number is 140 or higher, OR the bottom number is 90 or higher on repeated measurements. Blood pressure in the range of 120-140 (systolic) or 80-89 (diastolic) is considered "pre-hypertension". This means your are at risk for getting hypertension. You should have regular blood pressure checks to be sure your blood pressure is not rising. Home Care: Measure your blood pressure on 3 different days and write down the results. This can be done at your doctor's office or this facility. Some pharmacies and grocery stores offer automated blood pressure machines for your use. Follow Up: If your blood pressure is "high" (over 120/80) on 2 out of 3 days, you will need to follow up with your doctor for further evaluation and treatment. DO NOT PUT THIS OFF! Untreated high blood pressure increases the risk for heart attack, also known as acute myocardial infarction, or AMI, and stroke. It is a treatable condition. Get Prompt Medical Attention if any of the following occur: Chest pain or shortness of breath Severe headache Throbbing or rushing sound in the ears Nosebleed Sudden severe abdominal pain Extreme drowsiness, confusion or fainting Dizziness or vertigo (dizziness with spinning sensation) Weakness of an arm or leg or one side of the face Difficulty with speech or vision Hydrocodone Bitartrate, Acetaminophen Oral tablet What is this medicine? ACETAMINOPHEN; HYDROCODONE (a set a VANESSA hortencia fen; min droe KOE done) is a pain reliever. It is used to treat mild to moderate pain. How should I use this medicine? Take this medicine by mouth. Swallow it with a full glass of water. Follow the directions on the prescription label. If the medicine upsets your stomach, take the medicine with food or milk. Do not take more than you are told to take. Talk to your uranium processing supervisor regarding the use of this medicine in children. This medicine is not approved for use in children. What side effects may I notice from receiving this medicine? Side effects that you should report to your doctor or health healthcare science specialist as soon as possible: allergic reactions like skin rash, itching or hives, swelling of the face, lips, or tongue breathing problems confusion feeling faint or lightheaded, falls stomach pain yellowing of the eyes or skin Side effects that usually do not require medical attention (report to your doctor or health healthcare science specialist if they continue or are bothersome): nausea, vomiting stomach upset What may interact with this medicine? alcohol antihistamines isoniazid medicines for depression, anxiety, or psychotic disturbances medicines for sleep muscle relaxants naltrexone narcotic medicines (opiates) for pain phenobarbital ritonavir tramadol What if I miss a dose? If you miss a dose, take it as soon as you can. If it is almost time for your next dose, take only that dose. Do not take double or extra doses. Where should I keep my medicine? Keep out of the reach of children. This medicine can be abused. Keep your medicine in a safe place to protect it from theft. Do not share this medicine with anyone. Selling or giving away this medicine is dangerous and against the law. Store at room temperature between 15 and 30 degrees C (59 and 86 degrees F). Protect from light. Keep container tightly closed. Throw away any unused medicine after the expiration date. Discard unused medicine and used packaging carefully. Pets and children can be harmed if they find used or lost packages. What should I tell my health care provider before I take this medicine? They need to know if you have any of these conditions: brain tumor Crohn's disease, inflammatory bowel disease, or ulcerative colitis drink more than 3 alcohol-containing drinks per day drug abuse or addiction head injury heart or circulation problems kidney disease or problems going to the bathroom liver disease lung disease, asthma, or breathing problems an unusual or allergic reaction to acetaminophen, hydrocodone, other opioid analgesics, other medicines, foods, dyes, or preservatives or trying to get breast-feeding What should I watch for while using this medicine? Tell your doctor or health healthcare science specialist if your pain does not go away, if it gets worse, or if you have new or a different type of pain. You may develop tolerance to the medicine. Tolerance means that you will need a higher dose of the medicine for pain relief. Tolerance is normal and is expected if you take the medicine for a long time. Do not suddenly stop taking your medicine because you may develop a severe reaction. Your body becomes used to the medicine. This does NOT mean you are addicted. Addiction is a behavior related to getting and using a drug for a non-medical reason. If you have pain, you have a medical reason to take pain medicine. Your doctor will tell you how much medicine to take. If your doctor wants you to stop the medicine, the dose will be slowly lowered over time to avoid any side effects. You may get drowsy or dizzy when you first start taking the medicine or change doses. Do not drive, use machinery, or do anything that may be dangerous until you know how the medicine affects you. Stand or sit up slowly. There are different types of narcotic medicines (opiates) for pain. If you take more than one type at the same time, you may have more side effects. Give your health care provider a list of all medicines you use. Your doctor will tell you how much medicine to take. Do not take more medicine than directed. Call emergency for help if you have problems breathing. The medicine will cause constipation. Try to have a bowel movement at least every 2 to 3 days. If you do not have a bowel movement for 3 days, call your doctor or health healthcare science specialist. Too much acetaminophen can be very dangerous. Do not take Tylenol (acetaminophen) or medicines that contain acetaminophen with this medicine. Many non-prescription medicines contain acetaminophen. Always read the labels carefully. Sucralfate Oral tablet What is this medicine? SUCRALFATE (STEPHANIE benito fate) helps to treat ulcers of the intestine. How should I use this medicine? Take this medicine by mouth with a glass of water. Follow the directions on the prescription label. This medicine works best if you take it on an empty stomach, 1 hour before meals. Take your doses at regular intervals. Do not take your medicine more often than directed. Do not stop taking except on your doctor's advice. Talk to your uranium processing supervisor regarding the use of this medicine in children. Special care may be needed. What side effects may I notice from receiving this medicine? Side effects that you should report to your doctor or health healthcare science specialist as soon as possible: allergic reactions like skin rash, itching or hives, swelling of the face, lips, or tongue difficulty breathing Side effects that usually do not require medical attention (report to your doctor or health healthcare science specialist if they continue or are bothersome): back pain constipation drowsy, dizzy dry mouth headache stomach upset, gas trouble sleeping What may interact with this medicine? antacid cimetidine digoxin ketoconazole phenytoin quinidine ranitidine some antibiotics like ciprofloxacin, norfloxacin, and ofloxacin theophylline thyroid hormones warfarin What if I miss a dose? If you miss a dose, take it as soon as you can. If it is almost time for your next dose, take only that dose. Do not take double or extra doses. Where should I keep my medicine? Keep out of the reach of children. Store at room temperature between 15 and 30 degrees C (59 and 86 degrees F). Keep container tightly closed. Throw away any unused medicine after the expiration date. What should I tell my health care provider before I take this medicine? They need to know if you have any of these conditions: kidney disease an unusual or allergic reaction to sucralfate, other medicines, foods, dyes, or preservatives or trying to get breast-feeding What should I watch for while using this medicine? Visit your doctor or health healthcare science specialist for regular check ups. Let your doctor know if your symptoms do not improve or if you feel worse. Antacids should not be taken within one half hour before or after this medicine. Omeprazole Magnesium Gastro-resistant tablet What is this medicine? OMEPRAZOLE (oh ME pray zol) prevents the production of acid in the stomach. It is used to treat the symptoms of heartburn. You can buy this medicine without a prescription. This product is not for long-term use, unless otherwise directed by your doctor or health healthcare science specialist. How should I use this medicine? Take this medicine by mouth. Follow the directions on the product label. If you are taking this medicine without a prescription, take one tablet every day. Do not use for longer than 14 days or repeat a course of treatment more often than every 4 months unless directed by a doctor or healthcare professional. Take your dose at regular intervals every 24 hours. Swallow the tablet whole with a drink of water. Do not crush, break or chew. This medicine works best if taken on an empty stomach 30 minutes before breakfast. If you are using this medicine with the prescription of your doctor or healthcare professional, follow the directions you were given. Do not take your medicine more often than directed. Talk to your uranium processing supervisor regarding the use of this medicine in children. Special care may be needed. What side effects may I notice from receiving this medicine? Side effects that you should report to your doctor or health healthcare science specialist as soon as possible: allergic reactions like skin rash, itching or hives, swelling of the face, lips, or tongue bone, muscle or joint pain breathing problems chest pain or chest tightness dark yellow or brown urine diarrhea dizziness fast, irregular heartbeat feeling faint or lightheaded fever or sore throat muscle spasm palpitations redness, blistering, peeling or loosening of the skin, including inside the mouth seizures tremors unusual bleeding or bruising unusually weak or tired yellowing of the eyes or skin Side effects that usually do not require medical attention (Report these to your doctor or health healthcare science specialist if they continue or are bothersome.): constipation dry mouth headache loose stools nausea What may interact with this medicine? Do not take this medicine with any of the following medications: atazanavir clopidogrel nelfinavir This medicine may also interact with the following medications: ampicillin certain medicines for anxiety or sleep certain medicines that treat or prevent blood clots like warfarin cyclosporine diazepam digoxin disulfiram iron salts phenytoin prescription medicine for fungal or yeast infection like itraconazole, ketoconazole, voriconazole saquinavir tacrolimus What if I miss a dose? If you miss a dose, take it as soon as you can. If it is almost time for your next dose, take only that dose. Do not take double or extra doses. Where should I keep my medicine? Keep out of the reach of children. Store at room temperature between 20 and 25 degrees C (68 and 77 degrees F). Protect from light and moisture. Throw away any unused medicine after the expiration date. What should I tell my health care provider before I take this medicine? They need to know if you have any of these conditions: black or bloody stools chest pain difficulty swallowing have had heartburn for over 3 months have heartburn with dizziness, lightheadedness or sweating liver disease stomach pain unexplained weight loss vomiting with blood wheezing an unusual or allergic reaction to omeprazole, other medicines, foods, dyes, or preservatives or trying to get breast-feeding What should I watch for while using this medicine? It can take several days before your heartburn gets better. Check with your doctor or health healthcare science specialist if your condition does not start to get better, or if it gets worse. Do not treat diarrhea with over the counter products. Contact your doctor if you have diarrhea that lasts more than 2 days or if it is severe and watery. Do not treat yourself for heartburn with this medicine for more than 14 days in a row. You should only use this medicine for a 2-week treatment period once every 4 months. If your symptoms return shortly after your therapy is complete, or within the 4 month time frame, call your doctor or health healthcare science specialist. You have been given the following additional information: Chest Wall Pain, Costochondritis Hypertension, To Be Confirmed Hydrocodone Bitartrate, Acetaminophen Oral tablet Sucralfate Oral tablet Omeprazole Magnesium Gastro-resistant tablet Do not work for two days. (Electronically signed by Butch Lowry DO 02/05/2017 22:57)
--- NOTE | 2017-02-05 22:57 | ED MAR SUMMARY ---
..... Medication Administration Record [facility] [address] [place] [address] Patient: ALETA ARELLANO Visit ID: [id number] 46y, F Weight: 127.0 kg Height/Length: 60 in BMI: 54.7 ALLERGIES: No Known Drug Allergy Given 11:19 02/05/2017 Lisa Hussein R.N. Medication Administered: ASPIRIN [PO], Dose: 325 mg PO. Medication Ordered: Aspirin PO 325 mg (Do not crush or chew, NOW). Start 11:36 02/05/2017 Lisa Hussein R.N., Stop 13:18 02/05/2017 Lisa Hussein R.N. Medication Administered: IV NS (SALINE), Dose: IV Fluids over 30 minute(s), Rate: 999 mL/hr, Dispensed: 1000 mL bag, Site: #1 right AC. Medication Ordered: IV NS : initial bolus 500 mL (1000 mL/hr), then 500 mL/hr for X1 (NOW). Given 13:51 02/05/2017 Lisa Hussein R.N. Medication Administered: DILAUDID [IVP] (HYDROMORPHONE HCL PF), Dose: 1 mg IVP over 2 minute(s), Site: #1 right AC. Medication Ordered: Dilaudid IV 1 mg (HIGH ALERT MEDICATION, NOW). Given 15:04 02/05/2017 Lisa Hussein R.N. Medication Administered: ZOFRAN [IVP] (ONDANSETRON HCL), Dose: 4 mg IVP over 1 minute(s), Site: #1 right AC. Medication Ordered: Zofran IV 4 mg (NOW).
--- NOTE | 2017-02-05 22:57 | ED MAR SUMMARY ---
..... Medication Administration Record [facility] [address] [place] [address] Patient: AELTA ARELLANO Visit ID: [id number] 46y, F Weight: 127.0 kg Height/Length: 60 in BMI: 54.7 ALLERGIES: No Known Drug Allergy Given 11:19 02/05/2017 Lisa Hussein R.N. Medication Administered: ASPIRIN [PO], Dose: 325 mg PO. Medication Ordered: Aspirin PO 325 mg (Do not crush or chew, NOW). Start 11:36 02/05/2017 Lisa Hussein R.N., Stop 13:18 02/05/2017 Lisa Hussein R.N. Medication Administered: IV NS (SALINE), Dose: IV Fluids over 30 minute(s), Rate: 999 mL/hr, Dispensed: 1000 mL bag, Site: #1 right AC. Medication Ordered: IV NS : initial bolus 500 mL (1000 mL/hr), then 500 mL/hr for X1 (NOW). Given 13:51 02/05/2017 Lisa Hussein R.N. Medication Administered: DILAUDID [IVP] (HYDROMORPHONE HCL PF), Dose: 1 mg IVP over 2 minute(s), Site: #1 right AC. Medication Ordered: Dilaudid IV 1 mg (HIGH ALERT MEDICATION, NOW). Given 15:04 02/05/2017 Lisa Hussein R.N. Medication Administered: ZOFRAN [IVP] (ONDANSETRON HCL), Dose: 4 mg IVP over 1 minute(s), Site: #1 right AC. Medication Ordered: Zofran IV 4 mg (NOW).
--- NOTE | 2017-02-05 22:57 | ED MED RECONCILIATION SUMMARY ---
Patient: ALETA ARELLANO Medication Reconciliation Report [facility] VisitID: [id number] [address] [place] [address] 46y, F Registration Date/Time: 02/05/2017 Weight: 127.0 kg Height/Length: 60 in. BMI: 54.7 ALLERGIES: No Known Drug Allergy The patient's Home Medications are listed below: CONTINUE TAKING THE FOLLOWING MEDICATIONS: Vicodin Oral Zantac Oral The source(s) of the original Home Medication information: patient The following Medications were given to the patient in the Emergency Department: Aspirin [PO] PO 325 mg, administered: 02/05/2017 11:19:00 AM IV NS IV Fluids bolus 0, then 999 mL/hr, administered: 02/05/2017 11:36:00 AM Dilaudid [IVP] IVP 1 mg, administered: 02/05/2017 1:51:00 PM Zofran [IVP] IVP 4 mg, administered: 02/05/2017 3:04:00 PM The following Medications were prescribed to the patient: Hydrocodone/APAP 5mg / 325mg: take 1 orally every 12 hours as needed for pain. Dispense five (5). No refill. -- Butch Lowry DO Carafate 1 gm tablets: take 1 orally four times daily (1 hour before meals and at bedtime). Dispense sixty (60). No refills. Substitution is permissible. -- Butch Lowry DO Prilosec 20 mg capsules: Take 1 capsule orally once daily. Dispense fifteen (15). No refills. Substitution is permissible. -- Butch Lowry DO
--- NOTE | 2017-02-05 22:57 | ED MED RECONCILIATION SUMMARY ---
Patient: ALETA ARELLANO Medication Reconciliation Report [facility] VisitID: [id number] [address] [place] [address] 46y, F Registration Date/Time: 02/05/2017 Weight: 127.0 kg Height/Length: 60 in. BMI: 54.7 ALLERGIES: No Known Drug Allergy The patient's Home Medications are listed below: CONTINUE TAKING THE FOLLOWING MEDICATIONS: Vicodin Oral Zantac Oral The source(s) of the original Home Medication information: patient The following Medications were given to the patient in the Emergency Department: Aspirin [PO] PO 325 mg, administered: 02/05/2017 11:19:00 AM IV NS IV Fluids bolus 0, then 999 mL/hr, administered: 02/05/2017 11:36:00 AM Dilaudid [IVP] IVP 1 mg, administered: 02/05/2017 1:51:00 PM Zofran [IVP] IVP 4 mg, administered: 02/05/2017 3:04:00 PM The following Medications were prescribed to the patient: Hydrocodone/APAP 5mg / 325mg: take 1 orally every 12 hours as needed for pain. Dispense five (5). No refill. -- Butch Lowry DO Carafate 1 gm tablets: take 1 orally four times daily (1 hour before meals and at bedtime). Dispense sixty (60). No refills. Substitution is permissible. -- Butch Lowry DO Prilosec 20 mg capsules: Take 1 capsule orally once daily. Dispense fifteen (15). No refills. Substitution is permissible. -- Butch Lowry DO
== END 2017-02-05 15:10 | disposition home or self-care (01) ==
LOC: ED SRH 11:02
DX: R07.89 Other chest pain (principal); I10 Essential (primary) hypertension; E83.42 Hypomagnesemia; R21 Rash and other nonspecific skin eruption; E11.9 Type 2 diabetes mellitus without complications; Z79.899 Other long term (current) drug therapy
CPT/HCPCS: 90004; 90074; 90100; 90616; 91320; 92530; 92610; 92720; 93140; 95059